=== PATIENT | female | born 1950 | race Caucasian/White ===

== ENCOUNTER 2018-11-02 07:10 | Observation (INO) | payer MEDICARE, BC ==
[~2018-11-02 07:10] MED LIST: Bupivacaine 0.5%/EPINEPHrine 1:200,000 50 ML MDV ONE; Dexamethasone 4 MG/ML SDV ONE; Glycopyrrolate 0.2 MG/ML 5 ML MDV ONE; Neostigmine Methylsulfate 1 MG/ML 5 ML Syringe ONE; Ondansetron 4 MG/2 ML SDV ONE; Propofol 200 MG/20 ML SDV ONE; Rocuronium 50 MG/5 ML Vial ONE; Succinylcholine 200 MG/10 ML MDV ONE; fentaNYL 250 MCG/5 ML SDV ONE
[2018-11-02] MEDS ORDERED: HYDROmorphone/Normal Saline 15 MG/30 ML PCA IV SCH (07:30)
[2018-11-02] MEDS ORDERED: Dextrose 5%-Lactated Ringers 1,000 ML IV SCH (07:30)
[2018-11-02] MEDS ORDERED: Acetaminophen 500 MG Tab PO ONE (07:40)
[2018-11-02] MEDS ORDERED: Gabapentin 300 MG Cap PO ONE (07:40)
[2018-11-02] MEDS ORDERED: Naloxone 0.4 MG/ML SDV IV PRN (07:46)
[2018-11-02] MEDS ORDERED: Clindamycin Phosphate 900 MG in Sodium Chloride 0.9% 100 ML IV ONE (08:30)
[2018-11-02] MEDS ORDERED: Ketamine 500 MG/5 ML MDV IV SCH (09:00)
[2018-11-02] MEDS ORDERED: Ropivacaine 28 ML, Dexamethasone 8 MG, EPINEPHrine 0.4 MG, Sodium Chloride 0.9% 49.6 ML NERVRT SCH ×4 (09:00)
[2018-11-02] MEDS ORDERED: Ketamine 50 MG in Sodium Chloride 0.9% 49.5 ML IV SCH (09:00)
[2018-11-02] MEDS ORDERED: Meropenem 500 MG SDV ONE (09:28)
[2018-11-02] MEDS ORDERED: Lactated Ringers 1,000 ML ONE (10:32)
[2018-11-02] MEDS ORDERED: hydrOXYzine HCl 100 MG/2 ML SDV IM ONE (10:51)
[2018-11-02] MEDS ORDERED: fentaNYL 100 MCG/2 ML SDV IVPUSH ONE (11:14)
[2018-11-02] MEDS ORDERED: hydrOXYzine HCl 100 MG/2 ML SDV IM PRN (12:17)
[2018-11-02] MEDS ORDERED: hydrOXYzine HCl 25 MG Tab PO PRN (12:17)
[2018-11-02] MEDS ORDERED: Cyclobenzaprine 10 MG Tab PO PRN (12:18)
[2018-11-02] MEDS ORDERED: Ondansetron 4 MG/2 ML SDV IVPUSH PRN (12:18)
[2018-11-02] MEDS: Dextrose 5%-Lactated Ringers 1,000 ML IV SCH ×2 (13:15→20:39)
[2018-11-02] MEDS: Cyanocobalamin (Vitamin B12) 1,000 MCG/ML SDV IM SCH (14:26)
[2018-11-02] MEDS: Gabapentin 300 MG Cap PO SCH ×2 (14:26→23:12)
[2018-11-02] MEDS: Sodium Ferric Gluconate Cmplex 250 MG in Sodium Chloride 0.9% 100 ML IV SCH (14:27)
[2018-11-02] MEDS: Pantoprazole 40 MG Tab.CR PO SCH (16:30)
[2018-11-02] MEDS: Clindamycin Phosphate 900 MG in Sodium Chloride 0.9% 100 ML IV SCH (16:31)
[2018-11-03] MEDS: Clindamycin Phosphate 900 MG in Sodium Chloride 0.9% 100 ML IV SCH (00:03)
[2018-11-03] MEDS: Dextrose 5%-Lactated Ringers 1,000 ML IV SCH ×3 (03:55→17:43)
[2018-11-03] MEDS: Pantoprazole 40 MG Tab.CR PO SCH (07:30)
[2018-11-03] MEDS ORDERED: Tamsulosin 0.4 MG Cap.ER PO ONE (09:00)
[2018-11-03] MEDS: Gabapentin 300 MG Cap PO SCH (09:01)
--- NOTE | 2018-11-03 10:53 | PN ---
DATE OF SERVICE: 11/03/2018 SUBJECTIVE: Kat is postoperative day #1. States her pain is controlled. She was unable to void last night. Portillo catheter was replaced. She is getting iron infusions, she had one last night and will get one today for a ferritin of 7. REVIEW OF SYSTEMS: Remainder of review of systems negative for any pertinent positives and negatives. OBJECTIVE: GENERAL: Kat Benjamin is a pleasant 68-year-old female. VITAL SIGNS: TPR 96.4, 79, 16, blood pressure 85/46. HEENT: Negative. NECK: Supple. HEART: Regular rate and rhythm. LUNGS: Clear. ABDOMEN: Dressings dry and intact. Abdominal binder is on. EXTREMITIES: Without peripheral edema. SCDs are on. ASSESSMENT: Open repair of ventral hernia with mesh, left inguinal hernia repair with mesh, division of left inguinal hernia. Date: 11/02/2018. Surgeon: Lamberto Christine MD. PLAN: 1. Flomax 0.4 mg one now, then at bedtime. 2. Discontinue Portillo catheter at 0500. 3. Good pulmonary toilet. 4. We will evaluate p.r.n. or in a.m. Vidhi Nash PA-C /[id number]
[2018-11-03] MEDS: Sodium Ferric Gluconate Cmplex 250 MG in Sodium Chloride 0.9% 100 ML IV SCH (14:20)
[2018-11-03] MEDS: GABAPENTIN 300 MG PO SCH ×2 (14:25→20:34)
[2018-11-03] MEDS: Cyanocobalamin (Vitamin B12) 1,000 MCG/ML SDV IM SCH (14:25)
[2018-11-03] MEDS: OMEPRAZOLE 20 MG PO SCH (17:45)
[2018-11-03] MEDS ORDERED: Furosemide 20 MG/2 ML VIAL IVPUSH SCH (19:00)
[2018-11-03] MEDS: Albuterol/Ipratropium 3.0-0.5 MG/3 ML Neb Soln NEB PRN (19:34)
[2018-11-03] MEDS: AMITRIPTYLINE 25 MG PO SCH (20:33)
[2018-11-03] MEDS: Tamsulosin 0.4 MG Cap.ER PO SCH (20:33)
[2018-11-04] MEDS: Dextrose 5%-Lactated Ringers 1,000 ML IV SCH (06:02)
[2018-11-04] MEDS: OMEPRAZOLE 20 MG PO SCH ×2 (07:51→16:20)
[2018-11-04] MEDS: HYDROmorphone 2 MG Tab PO PRN ×4 (07:52→20:39)
[2018-11-04] MEDS: Acetaminophen 325 MG Tab PO SCH ×3 (07:52→18:26)
[2018-11-04] MEDS ORDERED: Ondansetron 4 MG Tab.DIS PO PRN (08:06)
[2018-11-04] MEDS ORDERED: Furosemide 20 MG Tab PO ONE (09:00)
[2018-11-04] MEDS: Magnesium Sulfate/Water 2 GM in Premix Bag 1 BAG IV SCH ×3 (09:57→21:02)
[2018-11-04] MEDS: Docusate Sodium 100 MG Cap PO SCH ×2 (09:57→20:29)
[2018-11-04] MEDS: Bisacodyl 5 MG Tab PO SCH ×2 (09:57→20:30)
[2018-11-04] MEDS: GABAPENTIN 300 MG PO SCH ×3 (09:58→20:31)
--- NOTE | 2018-11-04 10:01 | PN ---
DATE OF SERVICE: 11/04/2018 SUBJECTIVE: Kat is postop day #2. She did get some Lasix last night. She had some decreased breath sounds and rales with symptoms of shortness of breath. Afebrile, up ambulating. Oral intake 1520. Urine output 3650. Portillo catheter was removed . REVIEW OF SYSTEMS: Remainder of review of systems negative for any pertinent positives and negatives. OBJECTIVE: GENERAL: Kat Benjamin is a pleasant 68-year-old female. VITAL SIGNS: TPR is 98.7, 91, 17, blood pressure 98/52. HEENT: Negative. NECK: Supple. HEART: Regular rate and rhythm. LUNGS: Clear. ABDOMEN: Dressings dry and intact. Abdominal binder is on. EXTREMITIES: Without peripheral edema. ASSESSMENT: Open repair of ventral hernia with mesh, left inguinal hernia repair with mesh, division of left inguinal nerve. Date of surgery, 11/02/2018. Surgeon, Lamberto Christine M.D. PLAN: 1. Colace 100 mg b.i.d. 2. Dulcolax 2 tabs b.i.d. 3. Dressing off, may shower. 4. Saline lock IV. 5. Good pulmonary toilet. 6. We will evaluate p.r.n. or in the a.m. Vidhi Nash PA-C /[id number]
[2018-11-04] MEDS: Albuterol/Ipratropium 3.0-0.5 MG/3 ML Neb Soln NEB PRN (10:04)
[2018-11-04] MEDS: Potassium Chloride 20 MEQ, Lidocaine 1% 2 ML in Sodium Chloride 0.9% 100 ML IV SCH ×3 (10:13→14:21)
--- NOTE | 2018-11-04 11:07 | OR ---
DATE OF PROCEDURE: 11/02/2018 PREOPERATIVE DIAGNOSES: 1. Right upper quadrant ventral hernia. 2. Incarcerated left inguinal hernia. 3. 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 OPERATIVE PROCEDURES: 1. Open repair of ventral hernia with mesh ([id number]). 2. Left inguinal exploration with;. a. Repair of incarcerated left inguinal hernia with mesh plug technique ([id number]). b. Division of left ilioinguinal nerve ([id number]). ANESTHESIA: General. HOOK AND EYE ATTACHER: Vidhi Nash PA-C. INDICATION FOR PROCEDURE: This is a 68-year-old presenting with a ventral hernia located in the right upper quadrant. She has no incision in that area, maybe some neurologic changes in terms of nerve supply to muscle resulting in eventration in that area. The plan is to proceed with repair of this with a mesh technique. She also has a left inguinal hernia, which is increasingly symptomatic. The plan is to proceed with a left inguinal hernia repair with mesh plug technique as well. Potential risks of the procedure including bleeding, infection, injury to underlying viscera, problems with mesh becoming infected, as well as the possibility of cardiopulmonary, septic, or hemorrhagic complications leading to were discussed, and the patient wishes to proceed. DETAILS OF PROCEDURE: The patient was taken to the operating room and placed in a supine position. After general endotracheal anesthesia was induced, a Portillo catheter was inserted, which was removed at the end of the procedure, and the abdomen prepped and draped. Beginning in the right upper quadrant, a right subcostal incision was made. The area of protrusion had been marked out on the skin preoperatively. Then, incision was carried down through the skin and subcutaneous tissue and through the musculofascial layers. The herniation was more or less turned in, in terms of the peritoneal surface. Once this was placed, some minor adhesions were taken down and a Ventrio ST hernia mesh measuring 13.8 x 17.8 cm was selected at roughly 5 cm intervals around its circumference. 2-0 Vicryl sutures were placed on the polypropylene side of the mesh, and the mesh was soaked in antibiotic- containing saline solution. Stab wounds were then placed at the premarked location, where the sutures would be pulled up, thus fixing the mesh in general position. The superior side of the mesh involved placement of the sutures to the intercostal spaces, but not to above the level of the diaphragm. Once these sutures were in place, the area was irrigated with antibiotic-containing saline solution and the underside shelf of the mesh was initially fixed to the abdominal wall with titanium tacking screws. Good omentum was available to having been placed underneath the mesh to avoid visceral adhesions. At that point, the musculofascial layers were closed with 2 layers of #2 Vicryl stitch, subcutaneous tissue with some 3-0 Vicryl stitch, and the skin with stacey. Attention was then taken to the left inguinal area. A standard left inguinal incision was made and carried down through the skin and subcutaneous tissue and through the external oblique aponeurosis. A fairly obvious indirect hernia, which was not readily reducible, was encountered. This along with the round ligament, which had been divided medially, was dissected back to the level of the internal ring where it turned in. An extra-large mesh plug was then selected and fixed to the Ziggy's ligament with titanium tacking screws as well. Following that, the mesh was affixed to the underside of the conjoint tendon medially, superiorly, and laterally with horizontal mattress sutures of 2-0 Vicryl stitch. The free edge of the conjoint tendon was then affixed to the shelving portion of the inguinal ligament with running #1 Vicryl stitch. During the course of the dissection, it became evident that the left ilioinguinal nerve would be in the line of the subsequent flat portion of the mesh plug system causing a high likelihood of chronic neuropathic pain postoperatively if it were left in place. Given this, the nerve was divided except for far- lateral edge of the incision. The flat portion of the mesh plug system was then affixed medially to the pubic tubercle and then laterally to the inguinal floor with some 3-0 Vicryl stitches. The external oblique aponeurosis was then approximated with a 4-0 Vicryl stitch as was David's fascia and the skin then closed with stacey. The inguinal ligament at that point had been anesthetized with 0.5% Marcaine and prior to closure of the right subcostal incision, that area had been blocked with 2 transversus abdominis plane blocks, both placed on the right side as the incision in that region was entirely on the right side of the abdomen. Dressings were applied. The patient was taken to the recovery room in a satisfactory condition. Physician personal assistant, Vidhi Nash, played an essential role in assisting in this case, helping to position the patient, retract structures as needed, as well as suturing and stapling when indicated. Her presence improved the patient's safety and decreased the operative time. Lamberto Christine MD Job #: [id number]
[2018-11-04 14:11] LABS: H. PYLORI BREATH TEST Negative (Negative)
[2018-11-04] MEDS: AMITRIPTYLINE 25 MG PO SCH (20:30)
[2018-11-04] MEDS: Tamsulosin 0.4 MG Cap.ER PO SCH (20:31)
[2018-11-05] MEDS: HYDROmorphone 2 MG Tab PO PRN (00:46)
[2018-11-05] MEDS: Acetaminophen 325 MG Tab PO SCH ×2 (00:46→05:30)
[2018-11-05] MEDS: Magnesium Sulfate/Water 2 GM in Premix Bag 1 BAG IV SCH (03:22)
[2018-11-05] MEDS: OMEPRAZOLE 20 MG PO SCH (08:56)
[2018-11-05] MEDS: Docusate Sodium 100 MG Cap PO SCH (08:56)
[2018-11-05] MEDS: Bisacodyl 5 MG Tab PO SCH (08:57)
[2018-11-05] MEDS: GABAPENTIN 300 MG PO SCH (08:58)
--- NOTE | 2018-11-05 09:14 | DISCH ---
ADMISSION DIAGNOSES: 1. Ventral abdominal hernia. 2. Left inguinal hernia. 3. SP Kasey-en-Y gastric bypass surgery. 4. Unspecified surgical malabsorption. 5. Low ferritin, 17. 6. Iron deficiency anemia. 7. Gastroesophageal reflux disease. 8. Fibromyalgia. 9. Vitamin D deficiency. DISCHARGE DIAGNOSES: 1. Open repair of ventral hernia with mesh. 2. Left inguinal exploration with: a. Repair of incarcerated left inguinal hernia with mesh plug technique. b. Division of left ilioinguinal nerve for right upper quadrant ventral hernia, incarcerated left inguinal hernia, and left ilioinguinal nerve at risk for nerve entrapment and chronic pain. Date of surgery: 11/02/2018. Surgeon: Lamberto Christine MD. 3. Iron deficiency anemia, ferritin 17, requiring IV iron. HISTORY: Kat Benjamin is a 68-year-old female, presenting with a ventral hernia located in the right upper quadrant. There has been no incision in that area, but she has had some neurological changes in terms of nerve supplied to the muscle resulting in entrapment and resulting in pain in that area. She also has a left inguinal hernia which is symptomatic. After preoperative evaluation and discussion of possible risks and possible complications, she wished to proceed with surgical procedure. HOSPITAL COURSE: Kat had her surgery on 11/02/2018. She had no operative complications. On postoperative day #1, she was unable to void, so Portillo catheter was put back in and was placed and she was started on Flomax. She had good oral intake. Pain was well managed. On postoperative day #2, she was started on bowel stimulation. IV was saline locked. Her pain was managed with oral Dilaudid and alternating with Tylenol. She did have some shortness of breath, so was thought to be fluid overload, so was given 2 doses of Lasix each day and she diuresed and had no further difficulty breathing. On postoperative day #3, she was able to be discharged to home. Activity was good. Vital signs were stable. Pain was managed. Oral intake was adequate. Ferritin was 17. She received 2 doses of iron gluconate IV, one on 11/02/2018 and the other on 11/03/2018. OBJECTIVE: GENERAL: Kat Benjamin is a 68-year-old female. VITAL SIGNS: Height is 4 feet 9.48 inches, weight is 119 pounds. TPR is 96.9, 81, 16, blood pressure is 130/63. HEENT: Negative. NECK: Supple. HEART: Regular rate and rhythm. LUNGS: Clear. ABDOMEN: Stapled incision in the right upper quadrant looks good. She has stacey in the left inguinal area and that looks good also. She has been having abdominal binder on with pressure dressing in the right upper quadrant. EXTREMITIES: Without peripheral edema. Kat was discharged without any complications to home. FOLLOWUP APPOINTMENT: Vidhi Nash PA-C, on 11/13/2018 at 10:00 a.m. HOME MEDICATIONS: 1. Dilaudid 2 mg 1 to 2 every 4 hours p.r.n. pain, #40. 2. Potassium chloride 20 mEq oral daily, #14. 3. Tylenol 650 mg q.6 h. p.r.n. pain. 4. Dulcolax 10 mg oral tablets b.i.d. until BM. 5. Colace 100 mg oral twice daily for 30 days. She is to resume her home medication of: 1. Flonase as directed, two sprays in each nostril daily. 2. Gabapentin 300 to 600 mg oral 3 times a day. 3. Vitron-C one tablet daily. 4. Multivitamin 1 tablet daily. 5. Chewable omeprazole 20 mg twice a day. DISCHARGE DIET: Usual diet as tolerated. Drink 8 to 10 glasses of water a day. ACTIVITY: No lifting greater than 10 pounds for 6 weeks. Other activity, walk at least 6 times daily inside your home. Driving: Do not drive while on pain medication. Shower/bathing, may shower. DISCHARGE INSTRUCTIONS: Notify provider if any fever, increased pain, nausea, or vomiting. Keep site clean and dry. Wear abdominal binder for 6 weeks and then as tolerated. Wear a pressure dressing over the hernia site in right upper abdomen. SPECIAL INSTRUCTIONS: Use incentive spirometer 10 times every hour while awake.
== END 2018-11-05 10:40 | disposition home or self-care (01) ==
LOC: JP.SDS 07:10 → EDSTATUS 08:30 → JP.MS 11:00 → UNDOADMIN 11:00 → JP.MS 11:00 → UNDODISIN 11-05 10:40
PROVIDERS: ADMIT Surgery; ATTEND Surgery
PROC: 0WUF0JZ Supplement Abdominal Wall with Synthetic Substitute, Open Approach (ICD-10-PCS; principal; 2018-11-02)
PROC: 0YU60JZ Supplement Left Inguinal Region with Synthetic Substitute, Open Approach (ICD-10-PCS; 2018-11-02)
PROC: 018B0ZZ Division of Lumbar Nerve, Open Approach (ICD-10-PCS; 2018-11-02)
DX: K40.90 Unilateral inguinal hernia, without obstruction or gangrene, not specified as recurrent (principal); K43.6 Other and unspecified ventral hernia with obstruction, without gangrene; D50.9 Iron deficiency anemia, unspecified; K91.2 Postsurgical malabsorption, not elsewhere classified; K21.9 Gastro-esophageal reflux disease without esophagitis; M79.7 Fibromyalgia; Z98.84 Bariatric surgery status; Z98.0 Intestinal bypass and anastomosis status; E53.8 Deficiency of other specified B group vitamins; Z91.041 Radiographic dye allergy status; Z88.5 Allergy status to narcotic agent; Z88.0 Allergy status to penicillin; Z91.048 Other nonmedicinal substance allergy status
CPT/HCPCS: 36415; 49507; 49560; 49568; 64772; 80048; 80053; 82607; 82728; 82746; 83013; 83735; 83880; 84100; 85027; 88302; 94640; 94762; 96361; 96365; 96366; 96367; 96372; 96375; A9270; C1781; G0378; J0171; J0330; J1100; J1170; J1940; J2020; J2185; J2405; J2704; J2710; J2795; J2916; J3010; J3410; J3420; J3475; J3480; J3490; J7030; J7042; J7050; J7120; J7620-GY

== ENCOUNTER 2020-11-20 16:31 | Emergency (ER) | payer MEDICARE, BC ==
[2020-11-20] MEDS ORDERED: Sodium Chloride 0.9% 10 ML Syringe FLUSH PRN (17:35)
[2020-11-20] MEDS ORDERED: Aspirin 81 MG Tab.Chew PO ONE (17:38)
[2020-11-20] MEDS ORDERED: Nitroglycerin 0.4 MG Tab.SL SL PRN (17:40)
--- NOTE | 2020-11-20 17:40 | EDM.PDOC ---
<OfficerPhilipp - Last Filed: 11/20/20 17:36> ED HPI GENERAL MEDICAL PROBLEM - General Chief Complaint: Respiratory Problem Stated Complaint: SOB, DIZZINESS, CHEST PRRSSURE Time Seen by Provider: 11/20/20 17:31 Source of Information: Reports: Patient, RN Notes Reviewed History Limitations: Reports: No Limitations - History of Present Illness INITIAL COMMENTS - FREE TEXT/NARRATIVE: 7-year-old female presents emergency department a complaint of chest pressure, she states she initially had pretty significant chest pressure Friday morning early felt like it was squeezing around her heart lasted about 20 minutes then resolved she was nauseated short of breath and diaphoretic at the time she elected not to come in the chest pain has subsided but it still persistent in the middle of her back. At this time no nausea no diaphoresis no shortness of breath. Family history Brother myocardial infarction in his 40s, she did take aspirin at home, she rates her chest pain at this time 3 out of 10 - Related Data Allergies Allergy/AdvReac Type Severity Reaction Status Date / Time adhesive Allergy Rash Verified 11/20/20 17:08 Iodinated Contrast Media Allergy Hives Verified 11/20/20 17:08 [Iodinated Contrast Media - IV Dye] nickel [Nickel] Allergy Rash Verified 11/20/20 17:08 Penicillins Allergy Rash Verified 11/20/20 17:08 zoledronic acid Allergy Other Verified 11/20/20 17:08 codeine AdvReac Nausea Verified 11/20/20 17:08 oxycodone [Oxycodone] AdvReac Nausea Verified 11/20/20 17:08 Home Meds: Home Meds Amitriptyline [Elavil] 50 mg PO BEDTIME 02/15/14 [History] Iron,Carbonyl/Ascorbic Acid [Vitron-C Tablet] 1 tab PO DAILY 02/15/14 [History] Omeprazole 20 mg PO BID 02/15/14 [History] Fluticasone Propionate [Flonase] 2 sprays NS DAILY PRN 01/29/18 [History] Gabapentin [Neurontin] 300 - 600 mg PO TID 01/29/18 [History] Acetaminophen [Tylenol] 650 mg PO Q6H tablet 11/05/18 [Rx] Docusate Sodium [Colace] 100 mg PO BID cap 11/05/18 [Rx] bisacodyL [Dulcolax] 10 mg PO BID tablet 11/05/18 [Rx] Past Medical History HEENT History: Reports: Allergic Rhinitis, Impaired Vision Gastrointestinal History: Reports: Cholelithiasis, GERD 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: Musculoskeletal History: Reports: Arthritis Neurological History: Reports: Other (See Below) Other Neuro History: fibromyaglia Immunologic History: Reports: Other (See Below) Other Immunologic History: fibromyaglia - Infectious Disease History Infectious Disease History: Reports: Chicken Pox, Measles, Mumps, Shingles - Past Surgical History HEENT Surgical History: Reports: None GI Surgical History: Reports: Bariatric Procedure, Cholecystectomy, Colonoscopy, EGD, Ottoniel Fundoplication Female Surgical History: Reports: Breast Biopsy, Section Musculoskeletal Surgical History: Reports: None Social & Family History - Tobacco Use Tobacco Use Status *Q: Never Tobacco User - Caffeine Use Caffeine Use: Reports: Coffee - Alcohol Use Days Per Week of Alcohol Use: 7 Number of Drinks Per Day: 10 Total Drinks Per Week: 70 - Recreational Drug Use Recreational Drug Use: Yes Recreational Drug Type: Reports: Marijuana/Hashish Recreational Drug Use Frequency: Weekly ED ROS GENERAL - Review of Systems Review Of Systems: See Below Constitutional: Reports: Diaphoresis HEENT: Reports: No Symptoms Respiratory: Reports: Shortness of Breath Cardiovascular: Reports: Chest Pain GI/Abdominal: Reports: Nausea. Denies: Vomiting ED EXAM, GENERAL - Physical Exam Exam: See Below Exam Limited By: No Limitations General Appearance: Alert, WD/WN, No Apparent Distress Respiratory/Chest: No Respiratory Distress, Lungs Clear, Normal Breath Sounds, No Accessory Muscle Use, Chest Non-Tender Cardiovascular: Regular Rate, Rhythm, No Murmur GI/Abdominal: Soft, Non-Tender Extremities: No Pedal Edema Departure - Departure Disposition: Home, Self-Care 01 Clinical Impression: Atypical chest pain Acid reflux Qualifiers: Esophagitis presence: esophagitis presence not specified Qualified Code(s): K21.9 - Gastro-esophageal reflux disease without esophagitis - Discharge Information Instructions: Nonspecific Chest Pain, Adult, [id number] Referrals: Maulik Berg MD [Primary Care Provider] - Forms: ED Department Discharge Care Plan Goals: Take 40 mg of omeprazole on a daily basis for the next 7 days, then 20 to 40 mg daily as needed to control symptoms. Consider rechecking in 1 to 2 weeks if not improving satisfactorily, and return anytime if worsening such as increasing pain, shortness of breath or other concerns. Sepsis Event Note (ED) - Evaluation Sepsis Screening Result: No Definite Risk <Tom Warren - Last Filed: 11/20/20 21:13> ED HPI GENERAL MEDICAL PROBLEM chest Pain Score (Numeric/FACES): 1 Course - Vital Signs Last Recorded V/S: Last Vital Signs Temp 97.5 F 11/20/20 17:11 Pulse 78 11/20/20 17:47 Resp 19 11/20/20 17:47 BP 146/80 H 11/20/20 17:47 Pulse Ox 93 L 11/20/20 17:47 - Orders/Labs/Meds Orders: Active Orders 24 hr Category Date Time Status Chest 1V Frontal [CR] Stat Exams 11/20/20 17:36 Taken Peripheral IV Insertion Adult [OM.PC] Stat Oth 11/20/20 17:35 Ordered Saline Lock Insert [OM.PC] Stat Oth 11/20/20 17:35 Ordered EKG 12 Lead [EK] Stat Ther 11/20/20 17:36 Ordered Labs: Laboratory Tests 11/20/20 11/20/20 11/20/20 Range/Units 17:24 17:24 17:24 WBC 4.6 (4.5-11.0) K/uL RBC 3.96 (3.30-5.50) M/uL Hgb 12.4 D (12.0-15.0) g/dL Hct 38.0 (36.0-48.0) % MCV 96 (80-98) fL MCH 31 (27-31) pg MCHC 33 (32-36) % Plt Count 304 (150-400) K/uL Neut % (Auto) 55 (36-66) % Lymph % (Auto) 29 (24-44) % Stanton % (Auto) 15 H (2-6) % Eos % (Auto) 1 L (2-4) % Baso % (Auto) 0 (0-1) % PT 10.1 (9.5-12.0) sec INR 0.93 (0.80-1.20) APTT 25.1 L (27.0-36.0) sec D-Dimer, Quantitative 599.19 H (0.0-500.0) ng/mL Sodium (140-148) mmol/L Potassium (3.6-5.2) mmol/L Chloride (100-108) mmol/L Carbon Dioxide (21-32) mmol/L Anion Gap (5.0-14.0) mmol/L BUN (7-18) mg/dL Creatinine (0.6-1.0) mg/dL Est Cr Clr Drug Dosing mL/min Estimated GFR (MDRD) (>60) Glucose (74-106) mg/dL Calcium (8.5-10.1) mg/dL Total Bilirubin (0.2-1.0) mg/dL AST (15-37) U/L ALT (12-78) U/L Alkaline Phosphatase (46-116) U/L Troponin I (0.000-0.056) ng/mL Total Protein (6.4-8.2) g/dL Albumin (3.4-5.0) g/dL Globulin (2.3-3.5) g/dL Albumin/Globulin Ratio (1.2-2.2) 11/20/20 Range/Units 17:24 WBC (4.5-11.0) K/uL RBC (3.30-5.50) M/uL Hgb (12.0-15.0) g/dL Hct (36.0-48.0) % MCV (80-98) fL MCH (27-31) pg MCHC (32-36) % Plt Count (150-400) K/uL Neut % (Auto) (36-66) % Lymph % (Auto) (24-44) % Stanton % (Auto) (2-6) % Eos % (Auto) (2-4) % Baso % (Auto) (0-1) % PT (9.5-12.0) sec INR (0.80-1.20) APTT (27.0-36.0) sec D-Dimer, Quantitative (0.0-500.0) ng/mL Sodium 134 L (140-148) mmol/L Potassium 3.6 (3.6-5.2) mmol/L Chloride 99 L (100-108) mmol/L Carbon Dioxide 27 (21-32) mmol/L Anion Gap 11.6 (5.0-14.0) mmol/L BUN 9 D (7-18) mg/dL Creatinine 0.9 (0.6-1.0) mg/dL Est Cr Clr Drug Dosing 41.78 mL/min Estimated GFR (MDRD) > 60 (>60) Glucose 89 (74-106) mg/dL Calcium 8.7 (8.5-10.1) mg/dL Total Bilirubin 0.3 (0.2-1.0) mg/dL AST 33 (15-37) U/L ALT 22 (12-78) U/L Alkaline Phosphatase 101 (46-116) U/L Troponin I < 0.017 (0.000-0.056) ng/mL Total Protein 6.7 (6.4-8.2) g/dL Albumin 3.2 L (3.4-5.0) g/dL Globulin 3.5 (2.3-3.5) g/dL Albumin/Globulin Ratio 0.9 L (1.2-2.2) Meds: Medications Discontinued Medications Generic Name Dose Route Start Last Admin Trade Name Hemalq PRN Reason Stop Dose Admin Aspirin 324 mg 11/20/20 17:38 Aspirin PO 11/20/20 17:39 ONETIME ONE Al Hydroxide/Mg Hydroxide 15 0 ml 11/20/20 17:56 11/20/20 18:01 ml/ Lidocaine HCl 15 ml PO 11/20/20 17:57 15 ml ONETIME ONE Administration Sodium Chloride 1,000 mls @ 1,000 mls/hr 11/20/20 18:30 Normal Saline IV ASDIRECTED MELCHOR Nitroglycerin 0.4 mg 11/20/20 17:40 11/20/20 17:46 Nitrostat SL 0.4 mg Q5M PRN Administration Chest Pain Pantoprazole Sodium 40 mg 11/20/20 18:28 11/20/20 18:48 Protonix Iv IVPUSH 11/20/20 18:29 40 mg ONETIME ONE Administration Sodium Chloride 10 ml 11/20/20 17:35 11/20/20 17:46 Saline Flush FLUSH 10 ml ASDIRECTED PRN Administration Keep Vein Open - Re-Assessments/Exams Free Text/Narrative Re-Assessment/Exam: 11/20/20 18:30 Care taken over from Officer pending lab and x-ray. Labs are very reassuring, normal CBC, normal CMP and negative troponin. Minimal elevation of D-dimer. Her chest x-ray however shows a significant elevation of the right he midiaphragm which was not present 6 years ago on her last x-ray here in the emergency room. She was having symptoms significant indigestion so was given a GI cocktail which markedly improved her symptoms. She was being prepared for a CT scan of the abdomen and pelvis to assess the significant diaphragm elevation but the clinic records were obtained and her last 2 chest x-rays over the course of the last year both commented on a significant elevation of the right hemidiaphragm. The above studies were then canceled, she was given 40 mg of IV Protonix and encouraged her to take 40 mg of omeprazole daily for the next week and then as needed. Departure - Departure Time of Disposition: 19:04 Sepsis Event Note (ED) - Focused Exam Vital Signs: Vital Signs Temp Pulse Resp BP BP Pulse Ox 11/20/20 17:47 78 19 146/80 H 93 L 11/20/20 17:46 146/80 H 11/20/20 17:11 97.5 F 105 H 16 133/101 H 97 11/20/20 16:51 97.5 F 105 H 16 133/101 H 97
[2020-11-20] MEDS ORDERED: Alum Hydrox/Mag Hydrox/Simeth 15 ML, Lidocaine 2% 15 ML PO ONE ×2 (17:56)
[2020-11-20] MEDS ORDERED: Pantoprazole 40 MG Vial IVPUSH ONE (18:28)
[2020-11-20] MEDS ORDERED: Sodium Chloride 0.9% 1,000 ML IV SCH (18:30)
--- NOTE | 2020-11-21 09:17 | CR ---
CHEST: Portable to 06/01/2021 at 5:57 PM CLINICAL HISTORY:Chest pain COMPARISON:2014 FINDINGS: There is moderate elevation right hemidiaphragm which is chronic. Patient has a moderate S-shaped scoliosis. The heart size, pulmonary vascularity and hilar structures are normal. No infiltrate effusion or pneumothorax is seen. There are atherosclerotic changes in the aorta. IMPRESSION: No acute cardiopulmonary process. Moderate chronic elevation right hemidiaphragm Scoliosis
== END 2020-11-20 19:04 | disposition home or self-care (01) ==
LOC: JP.ED 16:31
DX: K21.9 Gastro-esophageal reflux disease without esophagitis (principal); Z91.048 Other nonmedicinal substance allergy status; Z91.041 Radiographic dye allergy status; Z88.0 Allergy status to penicillin; Z88.5 Allergy status to narcotic agent; Z88.8 Allergy status to other drugs, medicaments and biological substances; Z79.899 Other long term (current) drug therapy
CPT/HCPCS: 36415; 71045; 80053; 84484; 85025; 85379; 85610; 85730; 93005; 96374; 99284; 99285; A9270; C9113

== ENCOUNTER 2021-07-29 11:42 | Emergency (ER) | payer MEDICARE, BC ==
[2021-07-29] MEDS ORDERED: Ketorolac 30 MG/ML SDV IM ONE (12:48)
--- NOTE | 2021-07-29 12:50 | EDM.PDOC ---
ED HPI GENERAL MEDICAL PROBLEM - General Chief Complaint: Lower Extremity Injury/Pain Stated Complaint: LEFT ANKLE PAIN Time Seen by Provider: 07/29/21 12:46 Source of Information: Reports: Patient, RN Notes Reviewed History Limitations: Reports: No Limitations - History of Present Illness INITIAL COMMENTS - FREE TEXT/NARRATIVE: 79-year-old female presents emergency department day complaint of left ankle pain, she injured herself yesterday when she slipped and fell and had a twisting injury and now it is difficult for her to bear weight Left Ankle Pain Score (Numeric/FACES): 3 - Related Data Allergies Allergy/AdvReac Type Severity Reaction Status Date / Time zoledronic acid Allergy Unknown Other Verified 07/29/21 12:10 adhesive Allergy Rash Verified 07/29/21 12:10 Iodinated Contrast Media Allergy Hives Verified 07/29/21 12:10 [Iodinated Contrast Media - IV Dye] nickel [Nickel] Allergy Rash Verified 07/29/21 12:10 Penicillins Allergy Rash Verified 07/29/21 12:10 codeine AdvReac Nausea Verified 07/29/21 12:10 oxycodone [Oxycodone] AdvReac Nausea Verified 07/29/21 12:10 Home Meds: Home Meds Amitriptyline [Elavil] 50 mg PO BEDTIME 02/15/14 [History] Iron,Carbonyl/Ascorbic Acid [Vitron-C Tablet] 1 tab PO DAILY 02/15/14 [History] Omeprazole 20 mg PO BID 02/15/14 [History] Fluticasone Propionate [Flonase] 2 sprays NS DAILY PRN 01/29/18 [History] Gabapentin [Neurontin] 300 - 600 mg PO TID 01/29/18 [History] Acetaminophen [Tylenol] 650 mg PO Q6H tablet 11/05/18 [Rx] Past Medical History HEENT History: Reports: Allergic Rhinitis, Impaired Vision 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 Gastrointestinal History: Reports: Cholelithiasis, GERD Genitourinary History: Reports: None [employer] History: Reports: Musculoskeletal History: Reports: Arthritis Neurological History: Reports: Other (See Below) Other Neuro History: fibromyaglia Immunologic History: Reports: Other (See Below) Other Immunologic History: fibromyaglia - Infectious Disease History Infectious Disease History: Reports: Chicken Pox, Measles, Mumps, Shingles - Past Surgical History HEENT Surgical History: Reports: None GI Surgical History: Reports: Bariatric Procedure, Cholecystectomy, Colonoscopy, EGD, Ottoniel Fundoplication Female Surgical History: Reports: Breast Biopsy, Section Musculoskeletal Surgical History: Reports: None Social & Family History - Tobacco Use Tobacco Use Status *Q: Never Tobacco User Second Hand Smoke Exposure: No - Caffeine Use Caffeine Use: Reports: Coffee - Recreational Drug Use Recreational Drug Use: No Review of Systems - Review of Systems Review Of Systems: See Below Constitutional: Reports: No Symptoms Musculoskeletal: Reports: Joint Pain (Left ankle pain) ED EXAM, GENERAL - Physical Exam Exam: See Below Free Text/Narrative:: Examination left ankle I do appreciate some edema as well as ecchymosis on the lateral aspect she will not tolerate much of exam there is tenderness to palpation on the lateral aspect she can move all digits without difficulty pedal pulses +2 Exam Limited By: No Limitations General Appearance: Alert, WD/WN, No Apparent Distress ED TRAUMA EXTREMITY PROCEDURES - Splinting Left Lower Extremity Splint Site: Left lower extremity Pre-Procedure NV Status: Normal Post-Procedure NV Status: Normal Splint Material: Fiberglass Splint Design: Posterior Applied & Form Fitted By: Provider Provider Post-Splint Application NV Check: NV Status Normal, Good Position Complications: No Course - Vital Signs Last Recorded V/S: Last Vital Signs Temp 98.2 F 07/29/21 12:22 Pulse 88 07/29/21 12:22 Resp 16 07/29/21 12:22 BP 131/67 07/29/21 12:22 Pulse Ox 95 07/29/21 12:22 - Orders/Labs/Meds Orders: Active Orders 24 hr Category Date Time Status Ankle Min 3V Lt [CR] Stat Exams 07/29/21 12:48 Taken Meds: Medications Discontinued Medications Generic Name Dose Route Start Last Admin Trade Name Freq PRN Reason Stop Dose Admin Ketorolac Tromethamine 30 mg 07/29/21 12:48 07/29/21 13:16 Ketorolac 30 Mg/Ml Sdv IM 07/29/21 12:49 30 mg ONETIME ONE Administration Departure - Departure Time of Disposition: 13:46 Disposition: Home, Self-Care 01 Condition: Fair Clinical Impression: Fracture of fibula, left, closed Qualifiers: Encounter type: initial encounter Fibula location: distal Fracture morphology: other fracture Qualified Code(s): S82.832A - Other fracture of upper and lower end of left fibula, initial encounter for closed fracture - Discharge Information Referrals: Maulik Berg MD [Primary Care Provider] - Forms: ED Department Discharge Additional Instructions: Use ibuprofen for baseline pain control, use hydrocodone for breakthrough pain, please remain in the splint and crutches until you are reevaluated by orthopedics Sepsis Event Note (ED) - Focused Exam Vital Signs: Vital Signs Temp Pulse Resp BP Pulse Ox 07/29/21 12:22 98.2 F 88 16 131/67 95 07/29/21 12:13 98.2 F 88 16 131/67 95 - My Orders Last 24 Hours: My Active Orders 07/29/21 12:48 Ankle Min 3V Lt [CR] Stat - Assessment/Plan Last 24 Hours: My Active Orders 07/29/21 12:48 Ankle Min 3V Lt [CR] Stat Plan: Assessment Acuity = acute Site and laterality = left fibular fracture Etiology = trauma Manifestations = none Location of injury = Home Lab values = x-ray describes fracture above Plan Placed in a posterior splint she will follow-up with orthopedics this week hydrocodone 5/325 1 tab p.o. 3 times daily as needed total #10 for pain control This note was dictated using [employer] voice recognition software please call with any questions on syntax or grammar.
--- NOTE | 2021-07-30 10:02 | CR ---
Ankle Min 3V Lt CLINICAL HISTORY: Fall FINDINGS: The soft tissues are swollen. There is a slightly displaced fracture of the distal fibula. Ankle mortise is anatomic. Impression: Fractured fibula
== END 2021-07-29 14:19 | disposition home or self-care (01) ==
LOC: JP.ED 11:42
DX: S82.832A Other fracture of upper and lower end of left fibula, initial encounter for closed fracture (principal); I25.2 Old myocardial infarction; K21.9 Gastro-esophageal reflux disease without esophagitis; Z88.8 Allergy status to other drugs, medicaments and biological substances; Z91.048 Other nonmedicinal substance allergy status; Z91.041 Radiographic dye allergy status; Z88.0 Allergy status to penicillin; Z88.5 Allergy status to narcotic agent; Z79.899 Other long term (current) drug therapy; X50.1XXA Overexertion from prolonged static or awkward postures, initial encounter
CPT/HCPCS: 29515; 73610; 96372; 99283; J1885

== ENCOUNTER 2021-11-15 08:35 | Emergency (ER) | payer MEDICARE, BC | END 2021-11-15 09:59 | disposition home or self-care (01) | LOC: JP.ED 08:35 | DX: R07.89 Other chest pain (principal); R00.2 Palpitations; K21.9 Gastro-esophageal reflux disease without esophagitis; I25.2 Old myocardial infarction; Z88.0 Allergy status to penicillin; Z88.5 Allergy status to narcotic agent; Z91.041 Radiographic dye allergy status; Z91.040 Latex allergy status; Z88.8 Allergy status to other drugs, medicaments and biological substances; Z79.899 Other long term (current) drug therapy | CPT/HCPCS: 99283; 99284 ==

== ENCOUNTER 2022-07-29 14:52 | Inpatient (IN) | payer MEDICARE, BC ==
[2022-07-29] MEDS ORDERED: Ketorolac 30 MG/ML SDV IVPUSH ONE (16:11)
[2022-07-29 16:24] LABS: ESTIMATED GFR 68 mL/min (>60)
[2022-07-29 16:41] LABS: CORONAVIRUS COVID-19 NAA NEGATIVE (NEGATIVE)
[2022-07-29] MEDS ORDERED: NS + KCl 20mEq/L 1,000 ML IV SCH (20:15)
[2022-07-29] MEDS ORDERED: Ondansetron 4 MG/2 ML SDV IVPUSH ONE (20:46)
[2022-07-29] MEDS ORDERED: Acetaminophen 325 MG Tab PO ONE (21:12)
[2022-07-30] MEDS ORDERED: Magnesium Hydroxide 400 MG/5 ML Susp 30 ML Cup PO PRN (16:18)
[2022-07-30] MEDS ORDERED: Acetaminophen 650 MG Supp RECTAL PRN (16:18)
[2022-07-30] MEDS ORDERED: Calcium Carbonate 500 MG Tab.Chew PO PRN (16:19)
[2022-07-30] MEDS ORDERED: Ondansetron 4 MG/2 ML SDV IVPUSH PRN (16:19)
[2022-07-30] MEDS: Sodium Chloride 0.9% 1,000 ML IV SCH (20:22)
[2022-07-31] MEDS: Acetaminophen 325 MG Tab PO PRN ×2 (01:31→10:39)
[2022-07-31] MEDS ORDERED: Doxycycline 100 MG in Sodium Chloride 0.9% 100 ML IV SCH (02:00)
[2022-07-31] MEDS: Sodium Chloride 0.9% 1,000 ML IV SCH (05:38)
[2022-07-31] MEDS: Levothyroxine 50 MCG Tab PO SCH (08:53)
[2022-07-31] MEDS: Pantoprazole 40 MG Tab.CR PO SCH (08:53)
[2022-07-31] MEDS ORDERED: Potassium Chloride 20 MEQ Tab.ER PO ONE ×2 (09:00→20:00)
[2022-07-31] MEDS: Ondansetron 4 MG Tab.DIS PO PRN (09:01)
[2022-07-31] MEDS: Potassium Chloride 10 MEQ in Premix Bag 1 BAG IV SCH ×2 (09:04→10:32)
[2022-07-31] MEDS: Magnesium Sulfate/Water 2 GM in Premix Bag 1 BAG IV SCH ×3 (12:02→22:19)
[2022-07-31] MEDS: Doxycycline 100 MG Cap PO SCH ×2 (12:03→20:39)
[2022-07-31] MEDS: Multivitamins with Iron/Calcium/Folic Acid/Minerals Tab PO SCH (12:03)
[2022-07-31] MEDS: Cyanocobalamin (Vitamin B12) 1,000 MCG Tab PO SCH (12:03)
[2022-07-31] MEDS: Calcium Carbonate 500 MG Tab.Chew PO SCH ×2 (14:57→20:39)
[2022-07-31] MEDS ORDERED: Amitriptyline 25 MG Tab PO SCH (21:00)
[2022-08-01] MEDS: Levothyroxine 50 MCG Tab PO SCH (07:27)
[2022-08-01] MEDS: Pantoprazole 40 MG Tab.CR PO SCH (07:27)
[2022-08-01] MEDS: Acetaminophen 325 MG Tab PO PRN ×2 (07:30→14:31)
[2022-08-01] MEDS: Multivitamins with Iron/Calcium/Folic Acid/Minerals Tab PO SCH (09:35)
[2022-08-01] MEDS: Cyanocobalamin (Vitamin B12) 1,000 MCG Tab PO SCH (09:35)
[2022-08-01] MEDS: Doxycycline 100 MG Cap PO SCH ×2 (09:35→21:32)
[2022-08-01] MEDS: Calcium Carbonate 500 MG Tab.Chew PO SCH ×3 (09:36→21:32)
[2022-08-01] MEDS: Ketorolac 30 MG/ML SDV IVPUSH PRN ×2 (11:36→21:29)
[2022-08-02] MEDS: Acetaminophen 325 MG Tab PO PRN ×3 (03:00→20:54)
[2022-08-02] MEDS: Levothyroxine 50 MCG Tab PO SCH (08:02)
[2022-08-02] MEDS: Multivitamins with Iron/Calcium/Folic Acid/Minerals Tab PO SCH (09:17)
[2022-08-02] MEDS: Calcium Carbonate 500 MG Tab.Chew PO SCH ×3 (09:17→20:18)
[2022-08-02] MEDS: Doxycycline 100 MG Cap PO SCH ×2 (09:17→20:18)
[2022-08-02] MEDS: Pantoprazole 40 MG Tab.CR PO SCH (09:17)
[2022-08-02] MEDS: Cyanocobalamin (Vitamin B12) 1,000 MCG Tab PO SCH (09:18)
[2022-08-02] MEDS: Ketorolac 30 MG/ML SDV IVPUSH PRN (10:51)
[2022-08-02 14:11] LABS: BABESIA MICROTI IGG <1:10 (Neg:<1:10); BABESIA MICROTI IGM <1:10 (Neg:<1:10); HGE IGG TITER Negative (Neg:<1:64); HGE IGM TITER Negative (Neg:<1:20)
[2022-08-02] MEDS: Docusate Sodium 100 MG Cap PO PRN (15:03)
[2022-08-02 17:12] LABS: CK-BB 0 % (0); CK-MB 0 % (0-3); CK-MM 100 % (97-100); MACRO TYPE 1 0 % (Not Observed); MACRO TYPE 2 0 % (Not Observed)
[2022-08-03] MEDS: Levothyroxine 50 MCG Tab PO SCH (08:47)
[2022-08-03] MEDS: Pantoprazole 40 MG Tab.CR PO SCH (08:47)
[2022-08-03] MEDS: Multivitamins with Iron/Calcium/Folic Acid/Minerals Tab PO SCH (08:47)
[2022-08-03] MEDS: Calcium Carbonate 500 MG Tab.Chew PO SCH ×3 (08:47→21:23)
[2022-08-03] MEDS: Cyanocobalamin (Vitamin B12) 1,000 MCG Tab PO SCH (08:48)
[2022-08-03] MEDS: Doxycycline 100 MG Cap PO SCH ×2 (08:48→21:23)
[2022-08-03] MEDS ORDERED: Sodium Chloride 0.9% 10 ML Syringe FLUSH PRN (14:56)
[2022-08-03] MEDS ORDERED: Sodium Chloride 0.9% 1,000 ML IV SCH (15:00)
[2022-08-03] MEDS: Acetaminophen 325 MG Tab PO PRN (15:12)
[2022-08-03] MEDS: Pantoprazole 40 MG Vial IVPUSH SCH (16:20)
[2022-08-03] MEDS: Sucralfate Suspension 1 GM/10 ML Cup PO SCH ×2 (18:14→21:23)
[2022-08-03] MEDS: Ondansetron 4 MG Tab.DIS PO PRN (19:26)
[2022-08-04] MEDS: Pantoprazole 40 MG Vial IVPUSH SCH ×2 (03:12→14:58)
[2022-08-04] MEDS: Sucralfate Suspension 1 GM/10 ML Cup PO SCH (05:02)
[2022-08-04 05:21] LABS: ESTIMATED GFR 92 mL/min (>60)
[2022-08-04] MEDS ORDERED: Propofol 200 MG/20 ML SDV ONE (07:42)
[2022-08-04] MEDS ORDERED: Thiamine 100 MG in Sodium Chloride 0.9% 100 ML IV SCH (09:00)
[2022-08-04] MEDS ORDERED: MVI, Adult with Vitamin K 10 ML, Thiamine 100 MG, Folic Acid 1 MG in Sodium Chloride 0.... IV SCH ×4 (09:30)
[2022-08-04] MEDS: Levothyroxine 50 MCG Tab PO SCH (09:39)
[2022-08-04] MEDS: Doxycycline 100 MG Cap PO SCH ×2 (10:04→20:25)
[2022-08-04] MEDS: Calcium Carbonate 500 MG Tab.Chew PO SCH ×3 (10:05→20:25)
[2022-08-04] MEDS: Cyanocobalamin (Vitamin B12) 1,000 MCG Tab PO SCH (10:05)
[2022-08-04] MEDS: Multivitamins with Iron/Calcium/Folic Acid/Minerals Tab PO SCH (10:11)
[2022-08-04] MEDS: Cholecalciferol (Vitamin D3) 50,000 Unit Cap PO SCH (11:49)
[2022-08-04] MEDS: Iron Sucrose Complex 100 MG in Sodium Chloride 0.9% 100 ML IV SCH (11:49)
[2022-08-04] MEDS: Acetaminophen 325 MG Tab PO PRN (20:24)
[2022-08-05] MEDS: Pantoprazole 40 MG Vial IVPUSH SCH ×2 (03:48→14:16)
[2022-08-05] MEDS: Levothyroxine 50 MCG Tab PO SCH (07:08)
[2022-08-05] MEDS: Thiamine 100 MG Tab PO SCH (09:08)
[2022-08-05] MEDS: Doxycycline 100 MG Cap PO SCH ×2 (09:08→20:59)
[2022-08-05] MEDS: Calcium Carbonate 500 MG Tab.Chew PO SCH ×3 (09:08→20:59)
[2022-08-05] MEDS: Cyanocobalamin (Vitamin B12) 1,000 MCG Tab PO SCH (09:08)
[2022-08-05] MEDS: Cholecalciferol (Vitamin D3) 50,000 Unit Cap PO SCH (09:08)
[2022-08-05] MEDS: Folic Acid 1 MG Tab PO SCH (09:08)
[2022-08-05] MEDS: Iron Sucrose Complex 100 MG in Sodium Chloride 0.9% 100 ML IV SCH (09:51)
[2022-08-05] MEDS: metroNIDAZOLE 250 MG Tab PO SCH (20:59)
[2022-08-05] MEDS: Omeprazole 20 MG Cap.CR PO SCH (20:59)
[2022-08-06 04:51] LABS: ESTIMATED GFR 92 mL/min (>60)
[2022-08-06] MEDS: Levothyroxine 50 MCG Tab PO SCH (07:45)
[2022-08-06] MEDS ORDERED: Potassium Chloride 20 MEQ Tab.ER PO ONE (08:30)
[2022-08-06] MEDS: metroNIDAZOLE 250 MG Tab PO SCH ×3 (08:53→21:25)
[2022-08-06] MEDS: Omeprazole 20 MG Cap.CR PO SCH ×2 (08:53→21:24)
[2022-08-06] MEDS: Cholecalciferol (Vitamin D3) 50,000 Unit Cap PO SCH (08:53)
[2022-08-06] MEDS: Calcium Carbonate 500 MG Tab.Chew PO SCH ×3 (08:53→21:25)
[2022-08-06] MEDS: Thiamine 100 MG Tab PO SCH (08:54)
[2022-08-06] MEDS: Folic Acid 1 MG Tab PO SCH (08:54)
[2022-08-06] MEDS: Doxycycline 100 MG Cap PO SCH ×2 (08:54→21:25)
[2022-08-06] MEDS: Cyanocobalamin (Vitamin B12) 1,000 MCG Tab PO SCH (08:54)
[2022-08-06] MEDS: Iron Sucrose Complex 100 MG in Sodium Chloride 0.9% 100 ML IV SCH (09:35)
[2022-08-06] MEDS: Bismuth Subsalicylate 262 MG/15 ML Susp 236 ML Bottle PO SCH ×3 (15:46→22:06)
[2022-08-06] MEDS ORDERED: Bismuth Subsalicylate 262 MG/15 ML Susp 236 ML Bottle PO SCH (16:00)
[2022-08-07] MEDS: Bismuth Subsalicylate 262 MG/15 ML Susp 236 ML Bottle PO SCH ×4 (05:27→23:42)
[2022-08-07] MEDS: Folic Acid 1 MG Tab PO SCH (08:45)
[2022-08-07] MEDS: Docusate Sodium 100 MG Cap PO PRN (08:45)
[2022-08-07] MEDS: Cholecalciferol (Vitamin D3) 50,000 Unit Cap PO SCH (08:45)
[2022-08-07] MEDS: Calcium Carbonate 500 MG Tab.Chew PO SCH ×3 (08:45→20:15)
[2022-08-07] MEDS: Doxycycline 100 MG Cap PO SCH ×2 (08:46→20:15)
[2022-08-07] MEDS: Thiamine 100 MG Tab PO SCH (08:46)
[2022-08-07] MEDS: Omeprazole 20 MG Cap.CR PO SCH ×2 (08:46→20:15)
[2022-08-07] MEDS: metroNIDAZOLE 250 MG Tab PO SCH ×3 (08:46→20:15)
[2022-08-07] MEDS: Cyanocobalamin (Vitamin B12) 1,000 MCG Tab PO SCH (08:46)
[2022-08-07] MEDS: Levothyroxine 50 MCG Tab PO SCH (08:46)
[2022-08-07] MEDS ORDERED: Sodium Phosphate,Monobasic/Sodium Phosphate,Dibasic Enema 133 ML Bottle RECTAL PRN (12:43)
[2022-08-07] MEDS ORDERED: Bisacodyl 10 MG Supp RECTAL ONE ×2 (13:30→16:30)
[2022-08-08] MEDS: Bismuth Subsalicylate 262 MG/15 ML Susp 236 ML Bottle PO SCH ×2 (05:40→11:13)
[2022-08-08] MEDS: Omeprazole 20 MG Cap.CR PO SCH (08:09)
[2022-08-08] MEDS: Levothyroxine 50 MCG Tab PO SCH (08:09)
[2022-08-08] MEDS: Cholecalciferol (Vitamin D3) 50,000 Unit Cap PO SCH (08:10)
[2022-08-08] MEDS: Doxycycline 100 MG Cap PO SCH (08:10)
[2022-08-08] MEDS: Folic Acid 1 MG Tab PO SCH (08:10)
[2022-08-08] MEDS: Calcium Carbonate 500 MG Tab.Chew PO SCH (08:10)
[2022-08-08] MEDS: Cyanocobalamin (Vitamin B12) 1,000 MCG Tab PO SCH (08:10)
[2022-08-08] MEDS: Thiamine 100 MG Tab PO SCH (08:10)
[2022-08-08] MEDS: metroNIDAZOLE 250 MG Tab PO SCH (08:11)
[2022-08-12 16:12] LABS: VITAMIN E(ALPHA TOCOPHEROL) 11.2 mg/L (9.0-29.0); VITAMIN E(GAMMA TOCOPHEROL) 0.5 mg/L (0.5-4.9)
== END 2022-08-08 12:50 | disposition home health service (06) | DRG 869 ==
LOC: JP.ED 14:52 → JP.ICU 21:20 → JP.ED 22:15 → OBSVTOIN 07-31 11:42
PROVIDERS: ADMIT Internal Medicine; ATTEND Hospitalist
PROC: 0DB68ZX Excision of Stomach, Via Natural or Artificial Opening Endoscopic, Diagnostic (ICD-10-PCS; principal; 2022-08-04)
DX: A77.49 Other ehrlichiosis (principal); E86.0 Dehydration; R53.1 Weakness; R11.2 Nausea with vomiting, unspecified; E87.6 Hypokalemia; E03.9 Hypothyroidism, unspecified; K64.5 Perianal venous thrombosis; F10.21 Alcohol dependence, in remission; D50.0 Iron deficiency anemia secondary to blood loss (chronic); F10.20 Alcohol dependence, uncomplicated; H54.7 Unspecified visual loss; K21.9 Gastro-esophageal reflux disease without esophagitis; M19.90 Unspecified osteoarthritis, unspecified site; M43.17 Spondylolisthesis, lumbosacral region; M79.7 Fibromyalgia; F41.1 Generalized anxiety disorder; G47.00 Insomnia, unspecified; M81.0 Age-related osteoporosis without current pathological fracture; Z91.09 Other allergy status, other than to drugs and biological substances; Z79.890 Hormone replacement therapy; Z98.84 Bariatric surgery status; Z79.899 Other long term (current) drug therapy; Z90.49 Acquired absence of other specified parts of digestive tract; I25.2 Old myocardial infarction; Z88.0 Allergy status to penicillin; Z91.040 Latex allergy status; Z88.5 Allergy status to narcotic agent; Z91.041 Radiographic dye allergy status; Z20.822 Contact with and (suspected) exposure to COVID-19
CPT/HCPCS: 0241U; 36415; 70450; 71045; 71046; 73030; 74176; 80048; 80053; 80307; 81001; 82180; 82306; 82550; 82552; 82607; 82728; 82746; 83550; 83605; 83615; 83735; 84132; 84207; 84443; 84446; 84484; 84590; 85018; 85025; 85027; 85610; 86618; 86666; 86753; 86850; 86900; 86901; 86920; 86922; 87081; 93005; 97110; 97530; 99222; 99232; 99239; 87040; 99219; 99225; A9270-GY; C9113; J1756; J1885; J2405; J2704; J3411; J3475; J3480; J3490; J7030; J7509; Q0162

== ENCOUNTER 2022-08-09 11:07 | Emergency (ER) | payer MEDICARE, BC ==
[2022-08-09] MEDS ORDERED: Albuterol/Ipratropium 3.0-0.5 MG/3 ML Neb Soln NEB ONE (11:47)
[2022-08-09 12:32] LABS: ESTIMATED GFR 92 mL/min (>60); TROPONIN I HIGH SENSITIVITY 29.1 pg/mL (<=60.3)
[2022-08-09 12:49] LABS: CORONAVIRUS COVID-19 NAA NEGATIVE (NEGATIVE)
[2022-08-09] MEDS ORDERED: diphenhydrAMINE 50 MG/ML SDV IVPUSH ONE (13:23)
[2022-08-09] MEDS ORDERED: Sodium Chloride 0.9% 100 ML IV SCH (14:00)
[2022-08-09] MEDS ORDERED: Iopamidol 755 Mg/ML 100 ML Bottle IV SCH (14:00)
== END 2022-08-09 18:29 | disposition home or self-care (01) ==
LOC: JP.ED 11:07
DX: R53.1 Weakness (principal); I25.10 Atherosclerotic heart disease of native coronary artery without angina pectoris; I25.2 Old myocardial infarction; K21.9 Gastro-esophageal reflux disease without esophagitis; Z91.040 Latex allergy status; Z91.041 Radiographic dye allergy status; Z91.048 Other nonmedicinal substance allergy status; Z88.5 Allergy status to narcotic agent; Z88.8 Allergy status to other drugs, medicaments and biological substances; Z79.899 Other long term (current) drug therapy; Z20.822 Contact with and (suspected) exposure to COVID-19
CPT/HCPCS: 0241U; 36415; 71046; 71275; 80053; 80307; 84484; 85025; 85379; 96374; 99285; J1200; J3490; Q9967; J7620

== ENCOUNTER 2022-08-30 13:37 | Emergency (ER) | payer MEDICARE, BC ==
[2022-08-30] MEDS ORDERED: Sodium Chloride 0.9% 10 ML Syringe FLUSH PRN (13:42)
[2022-08-30] MEDS ORDERED: Sodium Chloride 0.9% 500 ML IV ONE (16:23)
[2022-08-30 16:34] LABS: ESTIMATED GFR 95 mL/min (>60)
[2022-08-30] MEDS ORDERED: Potassium Chloride 20 MEQ Tab.ER PO ONE (16:39)
[2022-08-30] MEDS ORDERED: Acetaminophen 500 MG Tab PO ONE (16:39)
== END 2022-08-30 18:15 | disposition home or self-care (01) ==
LOC: JP.ED 13:37
DX: R53.1 Weakness (principal); E86.0 Dehydration; E87.6 Hypokalemia; E03.9 Hypothyroidism, unspecified; E16.2 Hypoglycemia, unspecified; I25.10 Atherosclerotic heart disease of native coronary artery without angina pectoris; I25.2 Old myocardial infarction; K21.9 Gastro-esophageal reflux disease without esophagitis; Z98.84 Bariatric surgery status; Z91.048 Other nonmedicinal substance allergy status; Z88.8 Allergy status to other drugs, medicaments and biological substances; Z91.041 Radiographic dye allergy status; Z88.0 Allergy status to penicillin; Z88.5 Allergy status to narcotic agent; Z79.899 Other long term (current) drug therapy; Z20.822 Contact with and (suspected) exposure to COVID-19
CPT/HCPCS: 36415; 71045; 80048; 81001; 83735; 84439; 84484; 85025; 87086; 93005; 99285; A9270; J3490; J7040; U0002

== ENCOUNTER 2022-09-12 12:38 | Inpatient (IN) | payer MEDICARE, BC ==
[2022-09-12] MEDS ORDERED: Sodium Chloride 0.9% 1,000 ML IV ONE (12:44)
[2022-09-12] MEDS ORDERED: Sodium Chloride 0.9% 10 ML Syringe FLUSH PRN (12:45)
[2022-09-12 13:07] LABS: ESTIMATED GFR 95 mL/min (>60)
[2022-09-12] MEDS ORDERED: 50% Dextrose in Water 50 ML Syringe IVPUSH ONE (15:01)
[2022-09-12] MEDS: Dextrose 5%-Lactated Ringers 1,000 ML IV SCH ×2 (15:48→22:45)
[2022-09-12] MEDS ORDERED: Enoxaparin 30 MG/0.3 ML Syringe SUBCUT SCH (22:09)
[2022-09-12] MEDS ORDERED: Magnesium Hydroxide 400 MG/5 ML Susp 30 ML Cup PO PRN (22:09)
[2022-09-12] MEDS ORDERED: Ondansetron 4 MG Tab.DIS PO PRN (22:09)
[2022-09-12] MEDS: Melatonin 3 MG Tab PO SCH (22:44)
[2022-09-13 05:56] LABS: ESTIMATED GFR 100 mL/min (>60)
[2022-09-13] MEDS ORDERED: IRON PO SCH (07:30)
[2022-09-13] MEDS ORDERED: [UNRECOGNIZED DRUG - OTHER] PO SCH (07:30)
[2022-09-13] MEDS ORDERED: MULTIVIT CALC MINS PO SCH (07:30)
[2022-09-13] MEDS ORDERED: FOLIC PO SCH (07:30)
[2022-09-13] MEDS: Acetaminophen 325 MG Tab PO PRN ×2 (08:03→23:15)
[2022-09-13] MEDS: Pantoprazole 40 MG Tab.CR PO SCH (08:03)
[2022-09-13] MEDS: Levothyroxine 50 MCG Tab PO SCH (08:03)
[2022-09-13] MEDS: Folic Acid 1 MG Tab PO SCH (09:42)
[2022-09-13] MEDS: Thiamine 100 MG Tab PO SCH (09:42)
[2022-09-13] MEDS: Cyanocobalamin (Vitamin B12) 1,000 MCG Tab PO SCH (09:42)
[2022-09-13] MEDS: Cholecalciferol (Vitamin D3) 25 MCG Tab PO SCH (09:42)
[2022-09-13] MEDS: Multivitamins with Iron/Calcium/Folic Acid/Minerals Tab PO SCH ×2 (09:42→20:46)
[2022-09-13] MEDS: Dextrose 5%-Lactated Ringers 1,000 ML IV SCH (11:52)
[2022-09-13] MEDS ORDERED: Potassium Chloride 20 MEQ Tab.ER PO ONE ×2 (12:40→21:00)
[2022-09-13] MEDS: Albumin Human 25 GM in Premix Bag 1 BAG IV SCH (16:02)
[2022-09-13] MEDS: Melatonin 3 MG Tab PO SCH (20:43)
[2022-09-13] MEDS: Enoxaparin 40 MG/0.4 ML Syringe SUBCUT SCH (20:43)
[2022-09-13] MEDS: Mirtazapine 15 MG Tab PO SCH (20:47)
[2022-09-13] MEDS: Ondansetron 4 MG/2 ML SDV IV PRN (20:58)
[2022-09-14] MEDS ORDERED: traMADol 50 MG Tab PO ONE (01:11)
[2022-09-14] MEDS: Dextrose 5%-Lactated Ringers 1,000 ML IV SCH ×2 (05:11→21:03)
[2022-09-14] MEDS: Ondansetron 4 MG/2 ML SDV IV PRN (07:35)
[2022-09-14] MEDS: Thiamine 100 MG Tab PO SCH (08:05)
[2022-09-14] MEDS: Multivitamins with Iron/Calcium/Folic Acid/Minerals Tab PO SCH ×2 (08:05→20:14)
[2022-09-14] MEDS: Folic Acid 1 MG Tab PO SCH (08:06)
[2022-09-14] MEDS: Cholecalciferol (Vitamin D3) 25 MCG Tab PO SCH (08:06)
[2022-09-14] MEDS: Pantoprazole 40 MG Tab.CR PO SCH (08:06)
[2022-09-14] MEDS: Cyanocobalamin (Vitamin B12) 1,000 MCG Tab PO SCH (08:06)
[2022-09-14] MEDS: Levothyroxine 50 MCG Tab PO SCH (08:06)
[2022-09-14] MEDS: Albumin Human 25 GM in Premix Bag 1 BAG IV SCH (15:32)
[2022-09-14] MEDS ORDERED: Sodium Chloride 0.9% 1,000 ML IV SCH (16:45)
[2022-09-14] MEDS: Mirtazapine 15 MG Tab PO SCH (20:14)
[2022-09-14] MEDS: Enoxaparin 40 MG/0.4 ML Syringe SUBCUT SCH (20:14)
[2022-09-14] MEDS: Melatonin 3 MG Tab PO SCH (20:14)
[2022-09-15] MEDS: Pantoprazole 40 MG Tab.CR PO SCH (07:57)
[2022-09-15] MEDS: Levothyroxine 50 MCG Tab PO SCH (07:58)
[2022-09-15] MEDS: Folic Acid 1 MG Tab PO SCH (08:00)
[2022-09-15] MEDS: Multivitamins with Iron/Calcium/Folic Acid/Minerals Tab PO SCH (08:01)
[2022-09-15] MEDS: Thiamine 100 MG Tab PO SCH (08:01)
[2022-09-15] MEDS: Cholecalciferol (Vitamin D3) 25 MCG Tab PO SCH (08:01)
[2022-09-15] MEDS: Cyanocobalamin (Vitamin B12) 1,000 MCG Tab PO SCH (08:01)
[2022-09-15] MEDS: Dextrose 5%-Lactated Ringers 1,000 ML IV SCH ×3 (10:22→21:52)
[2022-09-15] MEDS: Ondansetron 4 MG/2 ML SDV IV PRN (11:36)
[2022-09-15] MEDS: Venlafaxine 75 MG Cap.ER PO SCH (12:24)
[2022-09-15] MEDS ORDERED: fentaNYL 250 MCG/5 ML SDV ONE (13:59)
[2022-09-15] MEDS ORDERED: Propofol 200 MG/20 ML SDV ONE (14:00)
[2022-09-15] MEDS ORDERED: Neostigmine Methylsulfate 1 MG/ML 5 ML Syringe ONE (14:00)
[2022-09-15] MEDS ORDERED: Ondansetron 4 MG/2 ML SDV ONE (14:00)
[2022-09-15] MEDS ORDERED: Meropenem 1 GM in Sodium Chloride 0.9% 100 ML IV SCH (14:00)
[2022-09-15] MEDS ORDERED: Dexamethasone 4 MG/ML SDV ONE (14:00)
[2022-09-15] MEDS ORDERED: Rocuronium 50 MG/5 ML Vial ONE (14:00)
[2022-09-15] MEDS ORDERED: Succinylcholine 200 MG/10 ML MDV ONE (14:00)
[2022-09-15] MEDS ORDERED: Glycopyrrolate 0.2 MG/ML 5 ML MDV ONE (14:00)
[2022-09-15] MEDS ORDERED: Meropenem 500 MG SDV ONE ×3 (14:12→15:20)
[2022-09-15] MEDS ORDERED: Lidocaine 1% 50 ML MDV ONE (14:24)
[2022-09-15] MEDS ORDERED: Bupivacaine 0.5%/EPINEPHrine 1:200,000 50 ML MDV ONE (14:25)
[2022-09-15] MEDS ORDERED: Ropivacaine 30 ML, dexAMETHasone 8 MG, EPINEPHrine 0.4 MG, Sodium Chloride 0.9% 47.6 ML NERVRT SCH ×4 (15:00)
[2022-09-15] MEDS ORDERED: Phenylephrine 1% 10 MG/ML SDV ONE (15:01)
[2022-09-15] MEDS ORDERED: Sodium Chloride 0.9% 10 ML ONE (15:20)
[2022-09-15] MEDS ORDERED: Sodium Chloride 0.9% 500 ML ONE (15:31)
[2022-09-15] MEDS: Albumin Human 25 GM in Premix Bag 1 BAG IV SCH ×2 (16:13→17:26)
[2022-09-15] MEDS ORDERED: Sodium Chloride 0.9% 500 ML IV ONE (17:22)
[2022-09-15] MEDS ORDERED: Hydrocortisone Sodium Succinate 100 MG/2 ML SDV IVPUSH ONE (17:22)
[2022-09-15] MEDS ORDERED: Albumin Human 25 GM in Premix Bag 1 BAG IV SCH (18:00)
[2022-09-15] MEDS ORDERED: Cyclobenzaprine 10 MG Tab PO PRN (18:04)
[2022-09-15] MEDS: HYDROmorphone/Normal Saline 6 MG/30 ML PCA Vial IV PRN (18:44)
[2022-09-15] MEDS ORDERED: Naloxone 0.4 MG/ML SDV IV PRN (19:00)
[2022-09-15] MEDS ORDERED: Acetaminophen 500 MG Tab PO PRN (19:00)
[2022-09-15] MEDS ORDERED: Metoclopramide 10 MG/2 ML SDV IVPUSH PRN (19:00)
[2022-09-15] MEDS ORDERED: diphenhydrAMINE 50 MG/ML SDV IVPUSH PRN (19:00)
[2022-09-15] MEDS ORDERED: hydrOXYzine HCL 100 MG/2 ML SDV IM PRN (19:00)
[2022-09-15] MEDS ORDERED: Labetalol 20 MG/4 ML Syringe IVPUSH PRN (19:00)
[2022-09-15] MEDS ORDERED: Calcium Gluconate 10% 1 GM/10 ML SDV IVPUSH PRN (19:00)
[2022-09-15] MEDS: Acetaminophen 325 MG Tab PO SCH (19:08)
[2022-09-15] MEDS: Meropenem 500 MG in Sodium Chloride 0.9% 50 ML IV SCH (20:57)
[2022-09-15] MEDS: Melatonin 3 MG Tab PO SCH (21:02)
[2022-09-15] MEDS ORDERED: Lactated Ringers 500 ML IV SCH (21:30)
[2022-09-16] MEDS: Acetaminophen 325 MG Tab PO SCH ×5 (00:15→23:04)
[2022-09-16] MEDS ORDERED: Lactated Ringers 500 ML IV SCH ×3 (00:45→04:15)
[2022-09-16] MEDS: Meropenem 500 MG in Sodium Chloride 0.9% 50 ML IV SCH ×4 (01:21→20:58)
[2022-09-16] MEDS: Dextrose 5%-Lactated Ringers 1,000 ML IV SCH ×3 (03:58→14:07)
[2022-09-16 05:15] LABS: ESTIMATED GFR 95 mL/min (>60)
[2022-09-16] MEDS ORDERED: Central Total Parenteral Nutrition Bag SCH (07:15)
[2022-09-16] MEDS: Levothyroxine 50 MCG Tab PO SCH (08:20)
[2022-09-16] MEDS: Pantoprazole 40 MG Vial IVPUSH SCH (08:21)
[2022-09-16 08:31] LABS: VITAMIN D,25-HYDROXY 39.3 ng/mL (30-100)
[2022-09-16] MEDS: Venlafaxine 75 MG Cap.ER PO SCH ×2 (08:31→08:37)
[2022-09-16] MEDS: Celecoxib 200 MG Cap PO SCH ×3 (08:31→21:15)
[2022-09-16] MEDS: Magnesium Sulfate/Water 2 GM in Premix Bag 1 BAG IV SCH ×3 (09:37→21:16)
[2022-09-16] MEDS ORDERED: Propofol 200 MG/20 ML SDV ONE (10:39)
[2022-09-16] MEDS: 1: AA 5%/Calcium/D15W/Lytes 1,000 ML with MVI, Adult with Vitamin K 10 ML, Zinc/Copper/M IV SCH ×6 (10:48→21:01)
[2022-09-16] MEDS: Potassium Phosphates 20 MMOLE in Sodium Chloride 0.9% 100 ML IV SCH ×3 (10:55→17:34)
[2022-09-16] MEDS ORDERED: Furosemide 40 MG/4 ML VIAL IVPUSH ONE (13:00)
[2022-09-16] MEDS ORDERED: MVI, Adult with Vitamin K 10 ML, Thiamine 200 MG, Zinc/Copper/Manganese/Selenium 1 ML i... IV SCH ×4 (16:00)
[2022-09-16] MEDS: Albumin Human 25 GM in Premix Bag 1 BAG IV SCH (17:39)
[2022-09-16] MEDS: Melatonin 3 MG Tab PO SCH (21:20)
[2022-09-17] MEDS: Magnesium Sulfate/Water 2 GM in Premix Bag 1 BAG IV SCH ×4 (02:18→23:37)
[2022-09-17] MEDS: Meropenem 500 MG in Sodium Chloride 0.9% 50 ML IV SCH ×4 (02:18→22:27)
[2022-09-17] MEDS: Dextrose 5%-Lactated Ringers 1,000 ML IV SCH (04:46)
[2022-09-17 05:22] LABS: ESTIMATED GFR 100 mL/min (>60)
[2022-09-17] MEDS: Acetaminophen 325 MG Tab PO SCH ×4 (06:23→23:41)
[2022-09-17] MEDS: 1: AA 5%/Calcium/D15W/Lytes 1,000 ML with MVI, Adult with Vitamin K 10 ML, Zinc/Copper/M IV SCH ×6 (06:23→17:11)
[2022-09-17] MEDS ORDERED: Central Total Parenteral Nutrition Bag SCH (06:30)
[2022-09-17] MEDS ORDERED: Bupivacaine 0.5% 30 ML SDV ONE (06:46)
[2022-09-17] MEDS ORDERED: Lidocaine 1% with EPINEPHrine 1:100,000 50 ML MDV ONE (06:46)
[2022-09-17] MEDS ORDERED: Meropenem 500 MG SDV ONE (06:48)
[2022-09-17] MEDS ORDERED: Propofol 200 MG/20 ML SDV ONE ×2 (07:06→08:30)
[2022-09-17] MEDS ORDERED: Ropivacaine 30 ML, dexAMETHasone 8 MG, EPINEPHrine 0.4 MG, Sodium Chloride 0.9% 47.6 ML NERVRT SCH ×4 (07:15)
[2022-09-17] MEDS: Levothyroxine 50 MCG Tab PO SCH (07:22)
[2022-09-17] MEDS ORDERED: Cyanocobalamin (Vitamin B12) 1,000 MCG/ML SDV IM ONE (09:00)
[2022-09-17] MEDS: Celecoxib 200 MG Cap PO SCH ×2 (10:17→20:10)
[2022-09-17] MEDS: Venlafaxine 75 MG Cap.ER PO SCH (10:17)
[2022-09-17] MEDS ORDERED: Furosemide 20 MG/2 ML VIAL IV ONE ×2 (10:20→14:30)
[2022-09-17] MEDS: Pantoprazole 40 MG Vial IVPUSH SCH (10:22)
[2022-09-17] MEDS ORDERED: Norepinephrine Bit/D5W Premix 4 MG in Premix Bag 1 BAG IV SCH (15:42)
[2022-09-17] MEDS ORDERED: Bumetanide 2.5 MG/10 ML MDV IVPUSH SCH (15:45)
[2022-09-17] MEDS: Bumetanide 1 MG/4 ML MDV IVPUSH SCH ×2 (16:22→22:33)
[2022-09-17] MEDS: Albumin Human 25 GM in Premix Bag 1 BAG IV SCH (17:50)
[2022-09-17] MEDS: Oxybutynin 5 MG Tab PO SCH ×2 (20:10)
[2022-09-17] MEDS: Melatonin 3 MG Tab PO SCH (20:10)
[2022-09-18] MEDS: Meropenem 500 MG in Sodium Chloride 0.9% 50 ML IV SCH ×4 (03:46→22:10)
[2022-09-18] MEDS: Bumetanide 1 MG/4 ML MDV IVPUSH SCH ×2 (03:47→10:32)
[2022-09-18] MEDS: Acetaminophen 325 MG Tab PO SCH ×3 (05:01→18:06)
[2022-09-18 05:22] LABS: ESTIMATED GFR 105 mL/min (>60)
[2022-09-18] MEDS: Magnesium Sulfate/Water 2 GM in Premix Bag 1 BAG IV SCH ×2 (05:30→11:09)
[2022-09-18] MEDS ORDERED: Central Total Parenteral Nutrition Bag SCH (07:15)
[2022-09-18] MEDS: 1: AA 5%/Calcium/D15W/Lytes 1,000 ML with MVI, Adult with Vitamin K 10 ML, Zinc/Copper/M IV SCH ×6 (07:39→20:56)
[2022-09-18] MEDS: Levothyroxine 50 MCG Tab PO SCH (07:50)
[2022-09-18] MEDS: Pantoprazole 40 MG Vial IVPUSH SCH (07:59)
[2022-09-18] MEDS ORDERED: Potassium Chloride Riders 40 MEQ in Premix Bag 1 BAG IV ONE (08:30)
[2022-09-18] MEDS: Celecoxib 200 MG Cap PO SCH ×2 (09:45→21:10)
[2022-09-18] MEDS: Oxybutynin 5 MG Tab PO SCH ×3 (09:45→21:10)
[2022-09-18] MEDS: Venlafaxine 75 MG Cap.ER PO SCH (09:45)
[2022-09-18] MEDS: HYDROmorphone/Normal Saline 6 MG/30 ML PCA Vial IV PRN (13:30)
[2022-09-18] MEDS ORDERED: Albuterol/Ipratropium 3.0-0.5 MG/3 ML Neb Soln ONE (17:05)
[2022-09-18] MEDS ORDERED: Albuterol/Ipratropium 3.0-0.5 MG/3 ML Neb Soln NEB ONE (17:10)
[2022-09-18] MEDS ORDERED: Acetylcysteine 20% 200 MG/ML 4 ML Nebulizer Soln SDV ONE (17:16)
[2022-09-18] MEDS ORDERED: Acetylcysteine 20% 200 MG/ML 4 ML Nebulizer Soln SDV NEB ONE (17:30)
[2022-09-18] MEDS ORDERED: Bumetanide 1 MG/4 ML MDV IVPUSH ONE (17:30)
[2022-09-18] MEDS ORDERED: Acetylcysteine 20% 200 MG/ML 4 ML Nebulizer Soln SDV NEB PRN (18:02)
[2022-09-18] MEDS: Albuterol/Ipratropium 3.0-0.5 MG/3 ML Neb Soln NEB SCH ×2 (18:05→22:13)
[2022-09-18] MEDS: Bumetanide 2.5 MG/10 ML MDV IVPUSH SCH (18:05)
[2022-09-18] MEDS: Albumin Human 25 GM in Premix Bag 1 BAG IV SCH (18:06)
[2022-09-18] MEDS: Melatonin 3 MG Tab PO SCH (21:10)
[2022-09-19] MEDS: Acetaminophen 325 MG Tab PO SCH ×5 (01:29→17:46)
[2022-09-19] MEDS: Bumetanide 2.5 MG/10 ML MDV IVPUSH SCH (02:18)
[2022-09-19] MEDS: Albuterol/Ipratropium 3.0-0.5 MG/3 ML Neb Soln NEB SCH ×7 (02:23→21:04)
[2022-09-19] MEDS: Meropenem 500 MG in Sodium Chloride 0.9% 50 ML IV SCH ×4 (04:38→21:04)
[2022-09-19 04:56] LABS: ESTIMATED GFR 105 mL/min (>60)
[2022-09-19] MEDS ORDERED: Central Total Parenteral Nutrition Bag SCH (08:00)
[2022-09-19] MEDS: Celecoxib 200 MG Cap PO SCH ×2 (08:33→20:55)
[2022-09-19] MEDS: Oxybutynin 5 MG Tab PO SCH ×3 (08:34→21:02)
[2022-09-19] MEDS: Levothyroxine 50 MCG Tab PO SCH (08:34)
[2022-09-19] MEDS: Venlafaxine 75 MG Cap.ER PO SCH (08:34)
[2022-09-19] MEDS: Pantoprazole 40 MG Vial IVPUSH SCH (08:42)
[2022-09-19] MEDS ORDERED: Bumetanide 1 MG/4 ML MDV IVPUSH SCH (09:00)
[2022-09-19] MEDS: Bumetanide 1 MG/4 ML MDV IVPUSH SCH ×2 (09:13→17:27)
[2022-09-19] MEDS: 1: AA 5%/Calcium/D15W/Lytes 1,000 ML with MVI, Adult with Vitamin K 10 ML, Zinc/Copper/M IV SCH ×3 (10:10)
[2022-09-19] MEDS: Ondansetron 4 MG/2 ML SDV IVPUSH PRN (12:33)
[2022-09-19] MEDS: Albumin Human 25 GM in Premix Bag 1 BAG IV SCH (17:35)
[2022-09-19] MEDS: Melatonin 3 MG Tab PO SCH (20:55)
[2022-09-20] MEDS: Acetaminophen 325 MG Tab PO SCH ×4 (01:23→17:23)
[2022-09-20] MEDS: Albuterol/Ipratropium 3.0-0.5 MG/3 ML Neb Soln NEB SCH ×7 (02:51→21:57)
[2022-09-20] MEDS: Bumetanide 1 MG/4 ML MDV IVPUSH SCH ×3 (02:52→18:32)
[2022-09-20] MEDS: Meropenem 500 MG in Sodium Chloride 0.9% 50 ML IV SCH ×4 (04:08→21:56)
[2022-09-20] MEDS: 1: AA 5%/Calcium/D15W/Lytes 1,000 ML with MVI, Adult with Vitamin K 10 ML, Zinc/Copper/M IV SCH ×6 (05:25→19:35)
[2022-09-20 05:33] LABS: ESTIMATED GFR 105 mL/min (>60)
[2022-09-20] MEDS ORDERED: Central Total Parenteral Nutrition Bag SCH (07:00)
[2022-09-20] MEDS: Levothyroxine 50 MCG Tab PO SCH (08:30)
[2022-09-20] MEDS: Pantoprazole 40 MG Vial IVPUSH SCH (08:36)
[2022-09-20] MEDS: Celecoxib 200 MG Cap PO SCH ×2 (08:37→21:57)
[2022-09-20] MEDS: Oxybutynin 5 MG Tab PO SCH ×3 (08:38→21:57)
[2022-09-20] MEDS: Venlafaxine 75 MG Cap.ER PO SCH (08:38)
[2022-09-20] MEDS: Ondansetron 4 MG/2 ML SDV IVPUSH PRN (08:57)
[2022-09-20] MEDS: Bisacodyl 10 MG Supp RECTAL SCH ×2 (09:46→22:05)
[2022-09-20] MEDS ORDERED: Bumetanide 2.5 MG/10 ML MDV IVPUSH SCH (10:30)
[2022-09-20] MEDS ORDERED: Bumetanide 1 MG/4 ML MDV IVPUSH SCH (11:00)
[2022-09-20] MEDS: Albumin Human 25 GM in Premix Bag 1 BAG IV SCH (17:33)
[2022-09-20] MEDS: Melatonin 3 MG Tab PO SCH (22:05)
[2022-09-21] MEDS: Acetaminophen 325 MG Tab PO SCH ×4 (01:03→17:08)
[2022-09-21] MEDS: Albuterol/Ipratropium 3.0-0.5 MG/3 ML Neb Soln NEB SCH ×6 (02:01→21:22)
[2022-09-21] MEDS: Bumetanide 1 MG/4 ML MDV IVPUSH SCH ×2 (02:07→14:17)
[2022-09-21] MEDS: Dextrose 5%-Lactated Ringers 1,000 ML IV SCH (03:33)
[2022-09-21] MEDS: Meropenem 500 MG in Sodium Chloride 0.9% 50 ML IV SCH ×4 (04:47→22:20)
[2022-09-21 05:22] LABS: ESTIMATED GFR 113 mL/min (>60)
[2022-09-21] MEDS ORDERED: Central Total Parenteral Nutrition Bag SCH (06:45)
[2022-09-21] MEDS: Levothyroxine 50 MCG Tab PO SCH ×2 (08:24→08:39)
[2022-09-21] MEDS: Celecoxib 200 MG Cap PO SCH ×3 (08:25→21:22)
[2022-09-21] MEDS: Venlafaxine 75 MG Cap.ER PO SCH ×2 (08:26→08:40)
[2022-09-21] MEDS: Oxybutynin 5 MG Tab PO SCH ×4 (08:29→21:22)
[2022-09-21] MEDS: Pantoprazole 40 MG Vial IVPUSH SCH (08:31)
[2022-09-21] MEDS: 1: AA 5%/Calcium/D15W/Lytes 1,000 ML with MVI, Adult with Vitamin K 10 ML, Zinc/Copper/M IV SCH ×6 (09:24→22:58)
[2022-09-21] MEDS: Ondansetron 4 MG/2 ML SDV IVPUSH PRN (14:29)
[2022-09-21] MEDS: Melatonin 3 MG Tab PO SCH (21:22)
[2022-09-21] MEDS: HYDROmorphone 2 MG Tab PO PRN (23:09)
[2022-09-22] MEDS: Acetaminophen 325 MG Tab PO SCH ×4 (00:06→17:12)
[2022-09-22] MEDS: Bumetanide 1 MG/4 ML MDV IVPUSH SCH ×2 (02:06→13:35)
[2022-09-22] MEDS: Albuterol/Ipratropium 3.0-0.5 MG/3 ML Neb Soln NEB SCH ×6 (02:06→21:10)
[2022-09-22] MEDS: Meropenem 500 MG in Sodium Chloride 0.9% 50 ML IV SCH ×4 (03:43→21:12)
[2022-09-22 05:02] LABS: ESTIMATED GFR 100 mL/min (>60)
[2022-09-22] MEDS ORDERED: Central Total Parenteral Nutrition Bag SCH (07:00)
[2022-09-22] MEDS: Levothyroxine 50 MCG Tab PO SCH (07:33)
[2022-09-22] MEDS: Dronabinol 2.5 MG Cap PO SCH ×2 (08:40→21:11)
[2022-09-22] MEDS: HYDROmorphone 2 MG Tab PO PRN ×2 (08:40→21:07)
[2022-09-22] MEDS: Pantoprazole 40 MG Vial IVPUSH SCH (08:41)
[2022-09-22] MEDS: Venlafaxine 75 MG Cap.ER PO SCH (09:22)
[2022-09-22] MEDS: Celecoxib 200 MG Cap PO SCH ×2 (09:22→21:10)
[2022-09-22] MEDS: Oxybutynin 5 MG Tab PO SCH ×3 (09:22→21:10)
[2022-09-22] MEDS: 1: AA 5%/Calcium/D15W/Lytes 1,000 ML with MVI, Adult with Vitamin K 10 ML, Zinc/Copper/M IV SCH ×3 (11:09)
[2022-09-22] MEDS: Melatonin 3 MG Tab PO SCH (21:10)
[2022-09-23] MEDS: Acetaminophen 325 MG Tab PO SCH ×5 (01:09→18:43)
[2022-09-23] MEDS: 1: AA 5%/Calcium/D15W/Lytes 1,000 ML with MVI, Adult with Vitamin K 10 ML, Zinc/Copper/M IV SCH ×18 (01:12→22:59)
[2022-09-23] MEDS: Albuterol/Ipratropium 3.0-0.5 MG/3 ML Neb Soln NEB SCH ×6 (03:20→21:27)
[2022-09-23] MEDS: Bumetanide 1 MG/4 ML MDV IVPUSH SCH ×2 (03:23→13:30)
[2022-09-23] MEDS: Meropenem 500 MG in Sodium Chloride 0.9% 50 ML IV SCH ×4 (03:27→22:51)
[2022-09-23 05:08] LABS: ESTIMATED GFR 105 mL/min (>60)
[2022-09-23] MEDS ORDERED: Central Total Parenteral Nutrition Bag SCH (07:30)
[2022-09-23] MEDS: Pantoprazole 40 MG Vial IVPUSH SCH (08:12)
[2022-09-23] MEDS: Levothyroxine 50 MCG Tab PO SCH (08:12)
[2022-09-23] MEDS: Albumin Human 25 GM in Premix Bag 1 BAG IV SCH (08:29)
[2022-09-23] MEDS: Celecoxib 200 MG Cap PO SCH ×2 (08:38→21:28)
[2022-09-23] MEDS: Venlafaxine 75 MG Cap.ER PO SCH (08:38)
[2022-09-23] MEDS: Dronabinol 2.5 MG Cap PO SCH ×3 (08:53→21:34)
[2022-09-23] MEDS: Oxybutynin 5 MG Tab PO SCH ×3 (08:53→21:27)
[2022-09-23] MEDS: HYDROmorphone 2 MG Tab PO PRN ×3 (09:06→21:27)
[2022-09-23] MEDS: Melatonin 3 MG Tab PO SCH (21:27)
[2022-09-24] MEDS: Acetaminophen 325 MG Tab PO SCH ×6 (00:49→23:41)
[2022-09-24] MEDS: Albuterol/Ipratropium 3.0-0.5 MG/3 ML Neb Soln NEB SCH ×6 (02:38→21:18)
[2022-09-24] MEDS: Bumetanide 1 MG/4 ML MDV IVPUSH SCH ×2 (02:38→13:56)
[2022-09-24] MEDS: Meropenem 500 MG in Sodium Chloride 0.9% 50 ML IV SCH ×4 (03:57→22:18)
[2022-09-24 06:12] LABS: ESTIMATED GFR 105 mL/min (>60)
[2022-09-24] MEDS ORDERED: Central Total Parenteral Nutrition Bag SCH (07:30)
[2022-09-24] MEDS: 1: AA 5%/Calcium/D15W/Lytes 1,000 ML with MVI, Adult with Vitamin K 10 ML, Zinc/Copper/M IV SCH ×6 (08:23→19:44)
[2022-09-24] MEDS: Pantoprazole 40 MG Vial IVPUSH SCH (08:25)
[2022-09-24] MEDS: Levothyroxine 50 MCG Tab PO SCH (08:25)
[2022-09-24] MEDS: Albumin Human 25 GM in Premix Bag 1 BAG IV SCH (08:26)
[2022-09-24] MEDS: Celecoxib 200 MG Cap PO SCH ×2 (08:26→20:40)
[2022-09-24] MEDS: Venlafaxine 75 MG Cap.ER PO SCH (08:26)
[2022-09-24] MEDS: HYDROmorphone 2 MG Tab PO PRN ×2 (08:31→20:39)
[2022-09-24] MEDS: Dronabinol 2.5 MG Cap PO SCH ×2 (08:32→20:39)
[2022-09-24] MEDS: Oxybutynin 5 MG Tab PO SCH ×3 (08:33→20:41)
[2022-09-24] MEDS ORDERED: OLANZapine 10 MG Vial IM ONE (16:00)
[2022-09-24] MEDS: Fat Emulsion 100 ML IV SCH (16:19)
[2022-09-24] MEDS: Melatonin 3 MG Tab PO SCH (20:41)
[2022-09-25] MEDS: Bumetanide 1 MG/4 ML MDV IVPUSH SCH ×2 (01:14→13:18)
[2022-09-25] MEDS: Albuterol/Ipratropium 3.0-0.5 MG/3 ML Neb Soln NEB SCH ×6 (01:14→23:40)
[2022-09-25] MEDS: Meropenem 500 MG in Sodium Chloride 0.9% 50 ML IV SCH ×4 (04:24→23:21)
[2022-09-25 05:19] LABS: ESTIMATED GFR 100 mL/min (>60)
[2022-09-25] MEDS: 1: AA 5%/Calcium/D15W/Lytes 1,000 ML with MVI, Adult with Vitamin K 10 ML, Zinc/Copper/M IV SCH ×6 (05:29→15:49)
[2022-09-25] MEDS: Acetaminophen 325 MG Tab PO SCH ×4 (05:31→23:42)
[2022-09-25] MEDS ORDERED: Central Total Parenteral Nutrition Bag SCH (08:00)
[2022-09-25] MEDS: HYDROmorphone 2 MG Tab PO PRN ×2 (10:05→18:02)
[2022-09-25] MEDS: Venlafaxine 75 MG Cap.ER PO SCH (10:06)
[2022-09-25] MEDS: Celecoxib 200 MG Cap PO SCH ×2 (10:06→20:53)
[2022-09-25] MEDS: Oxybutynin 5 MG Tab PO SCH ×4 (10:06→20:54)
[2022-09-25] MEDS: Levothyroxine 50 MCG Tab PO SCH (10:07)
[2022-09-25] MEDS: Dronabinol 2.5 MG Cap PO SCH ×2 (10:11→20:53)
[2022-09-25] MEDS: Potassium Phos in 0.9 % NaCl 15 MMOL in Premix Bag 1 BAG IV SCH ×4 (10:19→13:18)
[2022-09-25] MEDS: Albumin Human 25 GM in Premix Bag 1 BAG IV SCH (10:25)
[2022-09-25] MEDS: Pantoprazole 40 MG Vial IVPUSH SCH (10:26)
[2022-09-25] MEDS: Fat Emulsion 100 ML IV SCH (15:49)
[2022-09-25] MEDS: Melatonin 3 MG Tab PO SCH (20:54)
[2022-09-26] MEDS: 1: AA 5%/Calcium/D15W/Lytes 1,000 ML with MVI, Adult with Vitamin K 10 ML, Zinc/Copper/M IV SCH ×9 (02:07→22:33)
[2022-09-26] MEDS: Bumetanide 1 MG/4 ML MDV IVPUSH SCH ×2 (02:08→13:33)
[2022-09-26] MEDS: Albuterol/Ipratropium 3.0-0.5 MG/3 ML Neb Soln NEB SCH ×6 (02:08→21:10)
[2022-09-26 04:49] LABS: ESTIMATED GFR 105 mL/min (>60)
[2022-09-26] MEDS: Meropenem 500 MG in Sodium Chloride 0.9% 50 ML IV SCH ×2 (04:50→10:05)
[2022-09-26] MEDS: Acetaminophen 325 MG Tab PO SCH ×3 (05:25→17:35)
[2022-09-26] MEDS ORDERED: Bupivacaine 0.5% 30 ML SDV ONE (06:40)
[2022-09-26] MEDS ORDERED: Meropenem 500 MG SDV ONE (06:40)
[2022-09-26] MEDS ORDERED: Lidocaine 1% with EPINEPHrine 1:100,000 50 ML MDV ONE (06:41)
[2022-09-26] MEDS ORDERED: fentaNYL 250 MCG/5 ML SDV ONE (07:00)
[2022-09-26] MEDS ORDERED: Propofol 200 MG/20 ML SDV ONE (07:05)
[2022-09-26] MEDS ORDERED: Glycopyrrolate 0.2 MG/ML 5 ML MDV ONE (07:05)
[2022-09-26] MEDS ORDERED: Rocuronium 50 MG/5 ML Vial ONE (07:05)
[2022-09-26] MEDS ORDERED: Ondansetron 4 MG/2 ML SDV ONE (07:05)
[2022-09-26] MEDS ORDERED: Succinylcholine 200 MG/10 ML MDV ONE (07:05)
[2022-09-26] MEDS ORDERED: Neostigmine Methylsulfate 1 MG/ML 5 ML Syringe ONE (07:05)
[2022-09-26] MEDS ORDERED: Dexamethasone 4 MG/ML SDV ONE (07:05)
[2022-09-26] MEDS ORDERED: Ropivacaine 28 ML, dexAMETHasone 8 MG, EPINEPHrine 0.4 MG, Sodium Chloride 0.9% 49.6 ML NERVRT SCH ×4 (07:30)
[2022-09-26] MEDS ORDERED: Linezolid 600 MG/300 ML Premix Bag IRR ONE (08:00)
[2022-09-26] MEDS ORDERED: Naloxone 0.4 MG/ML SDV IVPUSH PRN (08:22)
[2022-09-26] MEDS ORDERED: diphenhydrAMINE 25 MG Cap PO PRN (08:22)
[2022-09-26] MEDS ORDERED: HYDROmorphone/Normal Saline 6 MG/30 ML PCA Vial IV PRN (08:22)
[2022-09-26] MEDS ORDERED: Ondansetron 4 MG/2 ML SDV IVPUSH PRN (08:22)
[2022-09-26] MEDS ORDERED: diphenhydrAMINE 50 MG/ML SDV IVPUSH PRN (08:22)
[2022-09-26] MEDS ORDERED: Naloxone 0.4 MG/ML SDV IV PRN (09:00)
[2022-09-26] MEDS: Oxybutynin 5 MG Tab PO SCH ×3 (09:36→21:10)
[2022-09-26] MEDS: Celecoxib 200 MG Cap PO SCH ×2 (09:37→21:10)
[2022-09-26] MEDS: Dronabinol 2.5 MG Cap PO SCH ×2 (09:37→21:10)
[2022-09-26] MEDS ORDERED: Ketamine 13 MG in Sodium Chloride 0.9% 19.87 ML IV SCH (10:00)
[2022-09-26] MEDS ORDERED: Ketamine 500 MG/5 ML MDV IV SCH ×3 (10:00)
[2022-09-26] MEDS: Pantoprazole 40 MG Vial IVPUSH SCH (10:07)
[2022-09-26] MEDS: Levothyroxine 50 MCG Tab PO SCH (12:07)
[2022-09-26] MEDS: Fat Emulsion 100 ML IV SCH (16:31)
[2022-09-26] MEDS: Venlafaxine 75 MG Cap.ER PO SCH (19:57)
[2022-09-26] MEDS: Melatonin 3 MG Tab PO SCH (21:10)
[2022-09-27] MEDS: Acetaminophen 325 MG Tab PO SCH ×2 (00:22→06:24)
[2022-09-27] MEDS: Albuterol/Ipratropium 3.0-0.5 MG/3 ML Neb Soln NEB SCH ×6 (01:36→21:21)
[2022-09-27] MEDS: Bumetanide 1 MG/4 ML MDV IVPUSH SCH ×2 (01:38→14:08)
[2022-09-27 05:04] LABS: ESTIMATED GFR 105 mL/min (>60)
[2022-09-27] MEDS ORDERED: Central Total Parenteral Nutrition Bag SCH (07:15)
[2022-09-27] MEDS ORDERED: Docusate Sodium 100 MG Cap PO PRN (07:16)
[2022-09-27] MEDS ORDERED: Acetaminophen Soln 650 MG/20.3 ML UD Cup GTUBE PRN (08:17)
[2022-09-27] MEDS ORDERED: Cyclobenzaprine 10 MG Tab GTUBE PRN (08:19)
[2022-09-27] MEDS ORDERED: Docusate Sodium 100 MG Cap GTUBE PRN (08:21)
[2022-09-27] MEDS: 1: AA 5%/Calcium/D15W/Lytes 1,000 ML with MVI, Adult with Vitamin K 10 ML, Zinc/Copper/M IV SCH ×6 (08:40→19:21)
[2022-09-27] MEDS: Venlafaxine 75 MG Tab FTUBE SCH ×2 (09:09→20:25)
[2022-09-27] MEDS: Magnesium Hydroxide 400 MG/5 ML Susp 30 ML Cup GTUBE SCH ×3 (09:09→23:13)
[2022-09-27] MEDS: Celecoxib 200 MG Cap GTUBE SCH ×2 (09:09→20:25)
[2022-09-27] MEDS: Oxybutynin 5 MG Tab GTUBE SCH ×3 (09:10→20:29)
[2022-09-27] MEDS: Pantoprazole 40 MG Delayed-Release Granules 1 Packet FTUBE SCH (09:10)
[2022-09-27] MEDS: Levothyroxine 50 MCG Tab PO SCH (09:11)
[2022-09-27] MEDS: Acetaminophen Soln 650 MG/20.3 ML UD Cup GTUBE SCH ×3 (09:28→21:21)
[2022-09-27] MEDS: Dronabinol 2.5 MG Cap PO SCH ×2 (09:52→20:28)
[2022-09-27] MEDS: Fat Emulsion 100 ML IV SCH (16:10)
[2022-09-27] MEDS: Ondansetron 4 MG/2 ML SDV IVPUSH PRN (16:31)
[2022-09-27] MEDS: Melatonin 3 MG Tab GTUBE SCH (20:28)
[2022-09-27] MEDS: HYDROmorphone 2 MG Tab FTUBE PRN (23:17)
[2022-09-28] MEDS: Albuterol/Ipratropium 3.0-0.5 MG/3 ML Neb Soln NEB SCH ×7 (01:44→21:01)
[2022-09-28] MEDS: Acetaminophen Soln 650 MG/20.3 ML UD Cup GTUBE SCH ×4 (04:06→21:29)
[2022-09-28 04:55] LABS: ESTIMATED GFR 100 mL/min (>60)
[2022-09-28] MEDS: 1: AA 5%/Calcium/D15W/Lytes 1,000 ML with MVI, Adult with Vitamin K 10 ML, Zinc/Copper/M IV SCH ×3 (05:29)
[2022-09-28] MEDS: Levothyroxine 50 MCG Tab GTUBE SCH (07:33)
[2022-09-28] MEDS: Magnesium Hydroxide 400 MG/5 ML Susp 30 ML Cup GTUBE SCH ×2 (07:33→16:31)
[2022-09-28] MEDS: HYDROmorphone 2 MG Tab FTUBE PRN ×3 (08:46→18:19)
[2022-09-28] MEDS: Ondansetron 4 MG/2 ML SDV IVPUSH PRN (08:46)
[2022-09-28] MEDS ORDERED: Bumetanide 1 MG/4 ML MDV IVPUSH SCH (09:00)
[2022-09-28] MEDS: Dextrose 5%-Lactated Ringers 1,000 ML IV SCH (09:32)
[2022-09-28] MEDS: Dronabinol 2.5 MG Cap PO SCH ×2 (09:37→20:09)
[2022-09-28] MEDS: Bisacodyl 5 MG Tab GTUBE SCH ×3 (09:38→20:10)
[2022-09-28] MEDS: Pantoprazole 40 MG Delayed-Release Granules 1 Packet FTUBE SCH (09:38)
[2022-09-28] MEDS: Oxybutynin 5 MG Tab GTUBE SCH ×3 (09:38→20:11)
[2022-09-28] MEDS: Venlafaxine 75 MG Tab FTUBE SCH ×2 (09:39→20:10)
[2022-09-28] MEDS: Celecoxib 200 MG Cap GTUBE SCH ×2 (09:39→20:10)
[2022-09-28] MEDS: Fat Emulsion 100 ML IV SCH (15:35)
[2022-09-28] MEDS: Melatonin 3 MG Tab GTUBE SCH (20:10)
[2022-09-28] MEDS ORDERED: 1: AA 5%/Calcium/D15W/Lytes 1,000 ML with MVI, Adult with Vitamin K 10 ML, Zinc/Copper/M IV SCH ×3 (21:30)
[2022-09-29] MEDS: Magnesium Hydroxide 400 MG/5 ML Susp 30 ML Cup GTUBE SCH ×2 (00:04→08:19)
[2022-09-29] MEDS: Albuterol/Ipratropium 3.0-0.5 MG/3 ML Neb Soln NEB SCH ×6 (03:12→21:00)
[2022-09-29] MEDS: Ondansetron 4 MG/2 ML SDV IVPUSH PRN (03:29)
[2022-09-29] MEDS: Acetaminophen Soln 650 MG/20.3 ML UD Cup GTUBE SCH ×4 (03:36→21:06)
[2022-09-29 05:18] LABS: ESTIMATED GFR 95 mL/min (>60)
[2022-09-29] MEDS: HYDROmorphone 2 MG Tab FTUBE PRN ×3 (08:11→20:23)
[2022-09-29] MEDS: Loperamide 1 MG/7.5 ML 7.5 ML UD Cup GTUBE PRN ×2 (08:12→13:42)
[2022-09-29] MEDS: Oxybutynin 5 MG Tab GTUBE SCH ×3 (08:14→20:24)
[2022-09-29] MEDS: Pantoprazole 40 MG Delayed-Release Granules 1 Packet FTUBE SCH (08:14)
[2022-09-29] MEDS: Celecoxib 200 MG Cap GTUBE SCH ×2 (08:14→20:23)
[2022-09-29] MEDS: Venlafaxine 75 MG Tab FTUBE SCH ×2 (08:14→20:24)
[2022-09-29] MEDS: Levothyroxine 50 MCG Tab GTUBE SCH (08:15)
[2022-09-29] MEDS: Bisacodyl 5 MG Tab GTUBE SCH (08:15)
[2022-09-29] MEDS: Dronabinol 2.5 MG Cap PO SCH ×2 (08:16→20:24)
[2022-09-29] MEDS ORDERED: Bumetanide 1 MG Tab GTUBE SCH (09:00)
[2022-09-29] MEDS ORDERED: hydrOXYzine HCL 100 MG/2 ML SDV IM PRN (09:26)
[2022-09-29] MEDS: Melatonin 3 MG Tab GTUBE SCH (20:24)
[2022-09-30] MEDS: Albuterol/Ipratropium 3.0-0.5 MG/3 ML Neb Soln NEB SCH ×6 (01:32→21:01)
[2022-09-30] MEDS: Acetaminophen Soln 650 MG/20.3 ML UD Cup GTUBE SCH ×4 (04:12→21:01)
[2022-09-30 04:50] LABS: ESTIMATED GFR 95 mL/min (>60)
[2022-09-30] MEDS: Levothyroxine 50 MCG Tab GTUBE SCH (07:58)
[2022-09-30] MEDS: Venlafaxine 75 MG Tab FTUBE SCH ×2 (08:00→20:53)
[2022-09-30] MEDS: Pantoprazole 40 MG Delayed-Release Granules 1 Packet FTUBE SCH (08:00)
[2022-09-30] MEDS: Oxybutynin 5 MG Tab GTUBE SCH ×3 (08:00→20:53)
[2022-09-30] MEDS: Celecoxib 200 MG Cap GTUBE SCH ×2 (08:00→20:53)
[2022-09-30] MEDS: Dronabinol 2.5 MG Cap PO SCH ×2 (08:00→20:54)
[2022-09-30] MEDS: Ondansetron 4 MG/2 ML SDV IVPUSH PRN (19:19)
[2022-09-30] MEDS: Melatonin 3 MG Tab GTUBE SCH (20:46)
[2022-10-01] MEDS: Albuterol/Ipratropium 3.0-0.5 MG/3 ML Neb Soln NEB SCH ×6 (02:14→21:00)
[2022-10-01] MEDS: Acetaminophen Soln 650 MG/20.3 ML UD Cup GTUBE SCH ×4 (03:13→21:01)
[2022-10-01 05:16] LABS: ESTIMATED GFR 100 mL/min (>60)
[2022-10-01] MEDS: Dronabinol 2.5 MG Cap PO SCH ×2 (08:12→21:01)
[2022-10-01] MEDS: Pantoprazole 40 MG Delayed-Release Granules 1 Packet FTUBE SCH (08:13)
[2022-10-01] MEDS: Levothyroxine 50 MCG Tab GTUBE SCH (08:13)
[2022-10-01] MEDS: Celecoxib 200 MG Cap GTUBE SCH ×2 (08:13→21:01)
[2022-10-01] MEDS: Venlafaxine 75 MG Tab FTUBE SCH ×2 (08:13→21:01)
[2022-10-01] MEDS: Oxybutynin 5 MG Tab GTUBE SCH ×3 (08:13→21:01)
[2022-10-01] MEDS: Docusate Sodium Liquid 50 MG/5 ML ML 473 ML Bottle GTUBE PRN (15:35)
[2022-10-01] MEDS: Ondansetron 4 MG/2 ML SDV IVPUSH PRN (17:39)
[2022-10-01] MEDS: Melatonin 3 MG Tab GTUBE SCH (21:01)
[2022-10-02] MEDS: Albuterol/Ipratropium 3.0-0.5 MG/3 ML Neb Soln NEB SCH ×3 (01:33→10:25)
[2022-10-02] MEDS: Acetaminophen Soln 650 MG/20.3 ML UD Cup GTUBE SCH ×4 (04:00→21:27)
[2022-10-02 06:47] LABS: ESTIMATED GFR 100 mL/min (>60)
[2022-10-02] MEDS: Levothyroxine 50 MCG Tab GTUBE SCH (07:18)
[2022-10-02] MEDS ORDERED: buPROPion 150 MG Tab.SR PO SCH (09:00)
[2022-10-02] MEDS: Docusate Sodium Liquid 50 MG/5 ML ML 473 ML Bottle GTUBE PRN ×2 (09:15→21:28)
[2022-10-02] MEDS: Celecoxib 200 MG Cap GTUBE SCH ×2 (09:15→21:28)
[2022-10-02] MEDS: Venlafaxine 75 MG Tab FTUBE SCH ×2 (09:15→21:28)
[2022-10-02] MEDS: Pantoprazole 40 MG Delayed-Release Granules 1 Packet FTUBE SCH (09:15)
[2022-10-02] MEDS: buPROPion 100 MG Tab GTUBE SCH ×2 (09:15→21:28)
[2022-10-02] MEDS: Oxybutynin 5 MG Tab GTUBE SCH ×3 (09:15→21:28)
[2022-10-02] MEDS: Dronabinol 2.5 MG Cap PO SCH ×2 (09:18→21:25)
[2022-10-02] MEDS ORDERED: Albuterol/Ipratropium 3.0-0.5 MG/3 ML Neb Soln NEB PRN (11:47)
[2022-10-02] MEDS: Ondansetron 4 MG/2 ML SDV IVPUSH PRN (11:54)
[2022-10-02] MEDS: Melatonin 3 MG Tab GTUBE SCH (21:27)
[2022-10-03] MEDS: Acetaminophen Soln 650 MG/20.3 ML UD Cup GTUBE SCH ×4 (04:57→21:59)
[2022-10-03 05:30] LABS: ESTIMATED GFR 105 mL/min (>60)
[2022-10-03] MEDS: Docusate Sodium Liquid 50 MG/5 ML ML 473 ML Bottle GTUBE PRN ×2 (08:36→20:26)
[2022-10-03] MEDS: Celecoxib 200 MG Cap GTUBE SCH ×2 (08:37→20:27)
[2022-10-03] MEDS: Venlafaxine 75 MG Tab FTUBE SCH ×2 (08:37→20:27)
[2022-10-03] MEDS: Oxybutynin 5 MG Tab GTUBE SCH ×3 (08:37→20:28)
[2022-10-03] MEDS: buPROPion 100 MG Tab GTUBE SCH ×2 (08:37→20:29)
[2022-10-03] MEDS: Levothyroxine 50 MCG Tab GTUBE SCH (08:37)
[2022-10-03] MEDS: Pantoprazole 40 MG Delayed-Release Granules 1 Packet FTUBE SCH (08:37)
[2022-10-03] MEDS: Dronabinol 2.5 MG Cap PO SCH ×2 (08:41→20:26)
[2022-10-03] MEDS: Magnesium Sulfate/Water 2 GM in Premix Bag 1 BAG IV SCH ×2 (13:29→19:18)
[2022-10-03] MEDS: Potassium Chloride 10 MEQ in Premix Bag 1 BAG IV SCH ×4 (13:29→17:10)
[2022-10-03] MEDS: Magnesium Oxide 400 MG Tab GTUBE SCH (20:27)
[2022-10-03] MEDS: Melatonin 3 MG Tab GTUBE SCH (20:28)
[2022-10-03] MEDS: Ondansetron 4 MG/2 ML SDV IVPUSH PRN (22:29)
[2022-10-04] MEDS: Acetaminophen Soln 650 MG/20.3 ML UD Cup GTUBE SCH ×4 (05:20→21:01)
[2022-10-04 05:48] LABS: ESTIMATED GFR 105 mL/min (>60)
[2022-10-04] MEDS: Levothyroxine 50 MCG Tab GTUBE SCH (08:44)
[2022-10-04] MEDS: buPROPion 100 MG Tab GTUBE SCH ×2 (08:44→20:55)
[2022-10-04] MEDS: Venlafaxine 75 MG Tab FTUBE SCH ×2 (08:44→20:54)
[2022-10-04] MEDS: Dronabinol 2.5 MG Cap PO SCH ×2 (08:44→20:58)
[2022-10-04] MEDS: Celecoxib 200 MG Cap GTUBE SCH ×2 (08:45→20:54)
[2022-10-04] MEDS: Magnesium Oxide 400 MG Tab GTUBE SCH ×2 (08:45→20:54)
[2022-10-04] MEDS: Oxybutynin 5 MG Tab GTUBE SCH ×3 (08:46→20:55)
[2022-10-04] MEDS: Potassium Chloride 10% 20 MEQ/15 ML Soln 15 ML UD Cup PO SCH ×3 (08:46→20:55)
[2022-10-04] MEDS: Pantoprazole 40 MG Delayed-Release Granules 1 Packet FTUBE SCH (08:46)
[2022-10-04] MEDS: Docusate Sodium Liquid 50 MG/5 ML ML 473 ML Bottle GTUBE PRN ×2 (08:47→21:01)
[2022-10-04] MEDS: Melatonin 3 MG Tab GTUBE SCH (20:54)
[2022-10-05] MEDS: Acetaminophen Soln 650 MG/20.3 ML UD Cup GTUBE SCH ×4 (03:01→22:00)
[2022-10-05 05:28] LABS: ESTIMATED GFR 100 mL/min (>60)
[2022-10-05] MEDS: Docusate Sodium Liquid 50 MG/5 ML ML 473 ML Bottle GTUBE PRN ×2 (09:35→20:45)
[2022-10-05] MEDS: Pantoprazole 40 MG Delayed-Release Granules 1 Packet FTUBE SCH (09:36)
[2022-10-05] MEDS: Oxybutynin 5 MG Tab GTUBE SCH ×3 (09:36→20:46)
[2022-10-05] MEDS: Magnesium Oxide 400 MG Tab GTUBE SCH ×2 (09:36→20:46)
[2022-10-05] MEDS: Levothyroxine 50 MCG Tab GTUBE SCH (09:36)
[2022-10-05] MEDS: Celecoxib 200 MG Cap GTUBE SCH ×2 (09:37→20:45)
[2022-10-05] MEDS: buPROPion 100 MG Tab GTUBE SCH ×2 (09:37→20:46)
[2022-10-05] MEDS: Venlafaxine 75 MG Tab FTUBE SCH ×2 (09:37→20:46)
[2022-10-05] MEDS: Dronabinol 2.5 MG Cap PO SCH ×2 (09:49→20:47)
[2022-10-05] MEDS: Bisacodyl 10 MG Supp RECTAL PRN (12:00)
[2022-10-05] MEDS: Clotrimazole 10 MG Troche PO SCH ×3 (15:52→21:29)
[2022-10-05] MEDS: Melatonin 3 MG Tab GTUBE SCH (20:46)
[2022-10-06] MEDS: Acetaminophen Soln 650 MG/20.3 ML UD Cup GTUBE SCH ×4 (04:11→21:21)
[2022-10-06 05:27] LABS: ESTIMATED GFR 113 mL/min (>60)
[2022-10-06] MEDS: Clotrimazole 10 MG Troche PO SCH ×6 (05:51→22:00)
[2022-10-06] MEDS: Oxybutynin 5 MG Tab GTUBE SCH ×3 (08:53→21:22)
[2022-10-06] MEDS: Pantoprazole 40 MG Delayed-Release Granules 1 Packet FTUBE SCH (08:54)
[2022-10-06] MEDS: buPROPion 100 MG Tab GTUBE SCH ×2 (08:54→21:21)
[2022-10-06] MEDS: Celecoxib 200 MG Cap GTUBE SCH ×2 (08:54→21:20)
[2022-10-06] MEDS: Venlafaxine 75 MG Tab FTUBE SCH ×2 (08:55→21:20)
[2022-10-06] MEDS: Magnesium Oxide 400 MG Tab GTUBE SCH ×2 (08:56→21:20)
[2022-10-06] MEDS: Levothyroxine 50 MCG Tab GTUBE SCH (08:56)
[2022-10-06] MEDS: Dronabinol 2.5 MG Cap PO SCH ×2 (08:56→21:20)
[2022-10-06] MEDS ORDERED: Magnesium Hydroxide 400 MG/5 ML Susp 30 ML Cup PO ONE (09:00)
[2022-10-06] MEDS: Magnesium Sulfate/Water 2 GM in Premix Bag 1 BAG IV SCH ×2 (13:46→19:35)
[2022-10-06] MEDS: Melatonin 3 MG Tab GTUBE SCH (21:21)
[2022-10-07] MEDS: Acetaminophen Soln 650 MG/20.3 ML UD Cup GTUBE SCH ×4 (04:46→21:27)
[2022-10-07] MEDS: Clotrimazole 10 MG Troche PO SCH ×5 (07:23→21:27)
[2022-10-07] MEDS: Venlafaxine 75 MG Tab FTUBE SCH ×2 (08:47→20:27)
[2022-10-07] MEDS: Oxybutynin 5 MG Tab GTUBE SCH ×3 (08:47→20:27)
[2022-10-07] MEDS: Pantoprazole 40 MG Delayed-Release Granules 1 Packet FTUBE SCH (08:47)
[2022-10-07] MEDS: Levothyroxine 50 MCG Tab GTUBE SCH (08:47)
[2022-10-07] MEDS: buPROPion 100 MG Tab GTUBE SCH ×2 (08:47→20:28)
[2022-10-07] MEDS: Magnesium Oxide 400 MG Tab GTUBE SCH ×2 (08:47→20:27)
[2022-10-07] MEDS: Celecoxib 200 MG Cap GTUBE SCH ×2 (08:48→20:28)
[2022-10-07] MEDS: Dronabinol 2.5 MG Cap PO SCH ×2 (08:58→20:27)
[2022-10-07] MEDS: Melatonin 3 MG Tab GTUBE SCH (20:26)
[2022-10-08] MEDS: Acetaminophen Soln 650 MG/20.3 ML UD Cup GTUBE SCH ×4 (03:21→21:07)
[2022-10-08 05:27] LABS: ESTIMATED GFR 105 mL/min (>60)
[2022-10-08] MEDS: Clotrimazole 10 MG Troche PO SCH ×2 (06:30→10:57)
[2022-10-08] MEDS: Levothyroxine 25 MCG Tab GTUBE SCH (07:58)
[2022-10-08] MEDS: Magnesium Oxide 400 MG Tab GTUBE SCH ×2 (08:00→20:43)
[2022-10-08] MEDS: Pantoprazole 40 MG Delayed-Release Granules 1 Packet FTUBE SCH (08:01)
[2022-10-08] MEDS: Oxybutynin 5 MG Tab GTUBE SCH ×3 (08:01→20:43)
[2022-10-08] MEDS: Venlafaxine 75 MG Tab FTUBE SCH ×2 (08:01→20:43)
[2022-10-08] MEDS: Celecoxib 200 MG Cap GTUBE SCH ×2 (08:01→20:43)
[2022-10-08] MEDS: Dronabinol 2.5 MG Cap PO SCH ×2 (08:07→20:41)
[2022-10-08] MEDS ORDERED: buPROPion 100 MG Tab PO SCH (09:00)
[2022-10-08] MEDS: Melatonin 3 MG Tab GTUBE SCH (20:43)
[2022-10-08] MEDS: buPROPion 100 MG Tab GTUBE SCH (20:43)
[2022-10-09] MEDS: Acetaminophen Soln 650 MG/20.3 ML UD Cup GTUBE SCH ×4 (03:28→20:36)
[2022-10-09] MEDS: Docusate Sodium Liquid 50 MG/5 ML ML 473 ML Bottle GTUBE PRN (08:48)
[2022-10-09] MEDS: Venlafaxine 75 MG Tab FTUBE SCH ×2 (08:49→20:35)
[2022-10-09] MEDS: Celecoxib 200 MG Cap GTUBE SCH ×2 (08:49→20:35)
[2022-10-09] MEDS: Levothyroxine 25 MCG Tab GTUBE SCH (08:49)
[2022-10-09] MEDS: Magnesium Oxide 400 MG Tab GTUBE SCH ×2 (08:50→20:35)
[2022-10-09] MEDS: Oxybutynin 5 MG Tab GTUBE SCH ×3 (08:50→20:36)
[2022-10-09] MEDS: buPROPion 100 MG Tab GTUBE SCH ×2 (08:51→20:35)
[2022-10-09] MEDS: Bisacodyl 10 MG Supp RECTAL PRN (08:51)
[2022-10-09] MEDS: Pantoprazole 40 MG Delayed-Release Granules 1 Packet FTUBE SCH (08:51)
[2022-10-09] MEDS: Dronabinol 2.5 MG Cap PO SCH ×2 (08:54→20:35)
[2022-10-09] MEDS: Ondansetron 4 MG/2 ML SDV IVPUSH PRN (09:29)
[2022-10-09] MEDS: Melatonin 3 MG Tab GTUBE SCH (20:35)
[2022-10-10] MEDS ORDERED: Levothyroxine 50 MCG Tab GTUBE SCH (07:30)
[2022-10-10] MEDS: Celecoxib 200 MG Cap GTUBE SCH (08:49)
[2022-10-10] MEDS: buPROPion 100 MG Tab GTUBE SCH (08:49)
[2022-10-10] MEDS: Venlafaxine 75 MG Tab FTUBE SCH (08:50)
[2022-10-10] MEDS: Acetaminophen Soln 650 MG/20.3 ML UD Cup GTUBE SCH (08:50)
[2022-10-10] MEDS: Pantoprazole 40 MG Delayed-Release Granules 1 Packet FTUBE SCH (08:50)
[2022-10-10] MEDS: Oxybutynin 5 MG Tab GTUBE SCH (08:50)
[2022-10-10] MEDS: Magnesium Oxide 400 MG Tab GTUBE SCH (08:50)
[2022-10-10] MEDS: Dronabinol 2.5 MG Cap PO SCH (08:51)
== END 2022-10-10 12:40 | DRG 329 ==
LOC: JP.ED 12:38 → JP.MS 19:49 → JP.ED 22:02 → OBSVTOIN 09-15 13:54 → JP.ICU 09-17 12:02 → JP.MS 09-21 09:41
PROVIDERS: ADMIT Internal Medicine; ATTEND Surgery
PROC: 0DTN0ZZ Resection of Sigmoid Colon, Open Approach (ICD-10-PCS; principal; 2022-09-12)
PROC: 0DTP0ZZ Resection of Rectum, Open Approach (ICD-10-PCS; 2022-09-12)
PROC: 0DBW0ZZ Excision of Peritoneum, Open Approach (ICD-10-PCS; 2022-09-12)
PROC: 0DBW0ZZ Excision of Peritoneum, Open Approach (ICD-10-PCS; 2022-09-12)
PROC: 0W9G0ZZ Drainage of Peritoneal Cavity, Open Approach (ICD-10-PCS; 2022-09-12)
PROC: 3E0M05Z Introduction of Adhesion Barrier into Peritoneal Cavity, Open Approach (ICD-10-PCS; 2022-09-12)
PROC: 0WQF0ZZ Repair Abdominal Wall, Open Approach (ICD-10-PCS; 2022-09-17)
PROC: 02HV33Z Insertion of Infusion Device into Superior Vena Cava, Percutaneous Approach (ICD-10-PCS; 2022-09-17)
PROC: 3E0336Z Introduction of Nutritional Substance into Peripheral Vein, Percutaneous Approach (ICD-10-PCS; 2022-09-17)
PROC: 0DS80ZZ Reposition Small Intestine, Open Approach (ICD-10-PCS; 2022-09-26)
PROC: 0WPF0JZ Removal of Synthetic Substitute from Abdominal Wall, Open Approach (ICD-10-PCS; 2022-09-26)
PROC: 0DB80ZZ Excision of Small Intestine, Open Approach (ICD-10-PCS; 2022-09-26)
PROC: 3E0M05Z Introduction of Adhesion Barrier into Peritoneal Cavity, Open Approach (ICD-10-PCS; 2022-09-26)
PROC: 0DH60UZ Insertion of Feeding Device into Stomach, Open Approach (ICD-10-PCS; 2022-09-26)
PROC: 30233N1 Transfusion of Nonautologous Red Blood Cells into Peripheral Vein, Percutaneous Approach (ICD-10-PCS; 2022-09-28)
DX: K57.20 Diverticulitis of large intestine with perforation and abscess without bleeding (principal); E43 Unspecified severe protein-calorie malnutrition; K65.1 Peritoneal abscess; K95.89 Other complications of other bariatric procedure; Z68.1 Body mass index [BMI] 19.9 or less, adult; D62 Acute posthemorrhagic anemia; E87.0 Hyperosmolality and hypernatremia; K66.8 Other specified disorders of peritoneum; R01.1 Cardiac murmur, unspecified; R53.1 Weakness; E16.2 Hypoglycemia, unspecified; L89.619 Pressure ulcer of right heel, unspecified stage; E86.0 Dehydration; R07.89 Other chest pain; Z20.822 Contact with and (suspected) exposure to COVID-19; E83.41 Hypermagnesemia; F32.A Depression, unspecified; E03.9 Hypothyroidism, unspecified; I25.10 Atherosclerotic heart disease of native coronary artery without angina pectoris; K21.9 Gastro-esophageal reflux disease without esophagitis; Z91.040 Latex allergy status; Z88.5 Allergy status to narcotic agent; Z88.0 Allergy status to penicillin; Z79.890 Hormone replacement therapy; Z91.041 Radiographic dye allergy status; I25.2 Old myocardial infarction; Z90.49 Acquired absence of other specified parts of digestive tract; M79.7 Fibromyalgia; Z79.899 Other long term (current) drug therapy; Z98.84 Bariatric surgery status
CPT/HCPCS: 36415 ×3; 70450; 71045 ×2; 74019 ×2; 74176; 80048 ×2; 80053; 82040; 82947 ×13; 83605; 83735; 84100; 84134; 84443; 84484 ×2; 85025; 85027; 85610 ×2; 85730; 86140; 86850; 86900; 86901; 86920; 86922; 93005; 93010; 96361; 96365; 96366 ×2; 96372 ×3; 96375 ×2; 96376 ×2; 97162; 97165; 99219; 99225 ×2; 99285 ×2; A9270 ×36; G0378 ×6; J1650 ×3; J2405 ×3; J3490; J7030 ×2; J7121 ×6; P9047 ×2; Q0162; U0002; 36430; 76000; 82306; 82525; 82607; 82728; 82746; 83880; 84590; 84630; 87070; 87075; 87077; 87186; 87205; 88300; 88305; 88307; 93306; 94640; 96374; 97110-GO; 97110-GP; 97161-GP; 97530-GP; 99223; 99232; 99233; 99239; C1894; C9113; J0171; J0330; J1100; J1170; J1642; J1720; J1940; J2001; J2020; J2185; J2370; J2704; J2710; J2795; J3010; J3475; J3480; J7040; J7120; J7620; P9016

== ENCOUNTER 2022-10-30 13:01 | Emergency (ER) | payer MEDICARE, BC | END 2022-10-30 14:42 | LOC: JP.ED 13:01 | DX: K94.23 Gastrostomy malfunction (principal); I25.10 Atherosclerotic heart disease of native coronary artery without angina pectoris; I25.2 Old myocardial infarction; K21.9 Gastro-esophageal reflux disease without esophagitis; E03.9 Hypothyroidism, unspecified; Z79.899 Other long term (current) drug therapy | CPT/HCPCS: 99283; 99284 ==

== ENCOUNTER 2022-10-31 15:38 | Emergency (ER) | payer MEDICARE, BC | END 2022-10-31 17:45 | LOC: JP.ED 15:38 | DX: K94.23 Gastrostomy malfunction (principal); K57.20 Diverticulitis of large intestine with perforation and abscess without bleeding; R53.1 Weakness; I25.10 Atherosclerotic heart disease of native coronary artery without angina pectoris; I25.2 Old myocardial infarction; E03.9 Hypothyroidism, unspecified; Z91.041 Radiographic dye allergy status; Z91.040 Latex allergy status; Z88.5 Allergy status to narcotic agent; Z88.0 Allergy status to penicillin; Z91.048 Other nonmedicinal substance allergy status; Z88.8 Allergy status to other drugs, medicaments and biological substances; Z79.899 Other long term (current) drug therapy | CPT/HCPCS: 99282; 99283 ==

== ENCOUNTER 2025-05-16 08:02 | Emergency (ER) | payer MEDICARE, BC ==
[2025-05-16 08:24] LABS: BASOPHILS PERCENT AUTO 0.2 % (0.1-1.3); EOSINOPHILS PERCENT AUTO 0.0 % (0.0-5.4); IMMATURE GRAN ABSOLUTE AUTO 0.04 K/uL (0.00-0.23); IMMATURE GRAN PERCENT AUTO 0.8 % (0.0-0.7); LYMPHOCYTES ABSOLUTE AUTO 0.42 K/uL (0.8-3.3); LYMPHOCYTES PERCENT AUTO 8.1 % (11.4-47.7); MONOCYTES ABSOLUTE AUTO 0.35 K/uL (0.20-0.90); MONOCYTES PERCENT AUTO 6.7 % (3.3-12.6); NEUTROPHILS ABSOLUTE AUTO 4.37 K/uL (1.0-7.6); NEUTROPHILS PERCENT AUTO 84.2 % (40.0-78.1); PLATELET COUNT,PLT 269 K/uL (130-375); RED BLOOD CELL COUNT 3.24 M/uL (3.77-5.24); WHITE BLOOD CELL COUNT,WBC 5.2 K/uL (3.2-11.0)
[2025-05-16 08:29] LABS: BASOPHILS ABSOLUTE AUTO 0.01 K/uL (0.00-0.10); EOSINOPHILS ABSOLUTE AUTO 0.00 K/uL (0.00-0.40)
[2025-05-16 08:44] LABS: INR 1.0; PTT,PARTIAL THROMBOPLSTIN TIME 23.0 sec (21.8-27.3)
[2025-05-16] MEDS: Ondansetron 4 MG/2 ML SDV IVPUSH ONE (08:46)
[2025-05-16 08:48] LABS: BLOOD UREA NITROGEN,BUN 10.0 mg/dL (7-18); CARBON DIOXIDE,CO2 24.0 mmol/L (21-32); CHLORIDE,CL 100.0 mmol/L (100-108); CREATININE 0.8 mg/dL (0.6-1.0); EST CRCL DRUG DOSING (CG) 44.31 mL/min; ESTIMATED GFR 77.0 mL/min (>60); GLUCOSE RANDOM 198.0 mg/dL (74-106); POTASSIUM,K 3.3 mmol/L (3.6-5.2); SODIUM,NA 137.0 mmol/L (140-148)
[2025-05-16 08:49] LABS: TROPONIN I HIGH SENSITIVITY 70.7 pg/mL (<=60.3)
[2025-05-16] MEDS: Magnesium Sulfate 2 GM/50 mL 2 GM in Premix Bag 1 BAG IV ONE (09:04)
[2025-05-16] MEDS: Alum Hydrox/Mag Hydrox/Simeth 15 ML, Lidocaine 2% 15 ML PO ONE (09:17)
[2025-05-16 09:21] LABS: A/G RATIO 1.1 (1.2-2.2); ALANINE AMINOTRANSFERASE,ALT 36 U/L (12-78); ASPARTATE AMNIOTRANSFERASE,AST 24 U/L (15-37); BILIRUBIN DIRECT 0.07 mg/dL (0.0-0.2); BILIRUBIN TOTAL 0.2 mg/dL (0.2-1.0); PROTEIN TOTAL,TP 7.3 g/dL (6.4-8.2)
[2025-05-16] MEDS: Midazolam 1 MG/ML 2 ML SDV IVPUSH ONE (10:10)
== END 2025-05-16 13:20 | disposition home or self-care (01) ==
LOC: JP.ED 08:02
DX: R11.2 Nausea with vomiting, unspecified (principal); R10.9 Unspecified abdominal pain; E86.0 Dehydration; I25.10 Atherosclerotic heart disease of native coronary artery without angina pectoris; I25.2 Old myocardial infarction; K21.9 Gastro-esophageal reflux disease without esophagitis; E03.9 Hypothyroidism, unspecified; Z98.84 Bariatric surgery status; Z90.49 Acquired absence of other specified parts of digestive tract; Z88.0 Allergy status to penicillin; Z88.5 Allergy status to narcotic agent; Z88.8 Allergy status to other drugs, medicaments and biological substances; Z91.040 Latex allergy status; Z91.041 Radiographic dye allergy status; Z91.048 Other nonmedicinal substance allergy status; Z79.890 Hormone replacement therapy; Z79.899 Other long term (current) drug therapy
CPT/HCPCS: 36415; 71046; 80048; 80076; 84484; 85025; 85610; 85730; 93005; 96365; 96366; 96375; 99285; A9270; J2250; J2405; J3475